=== PATIENT | female | born 2005 | race Caucasian/White ===

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

== ENCOUNTER 2025-04-05 08:30 | Outpatient (CLI) | payer OTHER, SELFPAY | END 2025-04-05 08:31 | disposition home or self-care (01) | LOC: AMB 04-06 23:04 | PROVIDERS: Visit Provider Student in an Organized Health Care Education/Training Program | DX: R41.82 Altered mental status, unspecified (principal) | CPT/HCPCS: A0425; A0427 ==

== ENCOUNTER 2025-04-05 08:56 | Emergency (ER) | payer OTHER, SELFPAY ==
--- OUTSIDE RECORDS SUMMARY | 2025-03-05 17:25 | XMS_ITS | Encounter Summary ---
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) Discharge Disposition: Home or Self Care Social History Tobacco Use Types Packs/Day Years Used Date Smoking Tobacco: Never Smokeless Tobacco: Never Tobacco Cessation:Counseling Given: Not Answered Alcohol Use Standard Drinks/Week Comments Never 0 (1 standard drink = 0.6 oz pur e alcohol) Comments No Sex and Gender Information Value Date Recorded Sex Assigned at Not on file Legal Sex Female 4:45 PM CDT Gender Identity Not on file Sexual Orientation Not on file documented as of this encounter Last Filed Vital Signs Vital Sign Reading Time Taken Comments Blood Pressure 131/86 03/06/2025 6:02 AM CDT Pulse 70 03/06/2025 6:02 AM CDT Temperature 36.3 C (97.4 F) 03/06/2025 6:02 AM CDT Respiratory Rate 18 03/06/2025 6:02 AM CDT Oxygen Saturation 99% 03/06/2025 6:02 AM CDT Inhaled Oxygen Concentration - - Weight 69.1 kg (152 lb 4.8 oz) 03/05/2025 5:22 P M CDT Height - - Body Mass Index - - documented in this encounter Functional Status * Calculated C-SSRS Risk Score (Lifetime/Recent) Answer Date of Assessment Author No Risk Indicated 03/05/2025 8:14 PM CDT Adriana Burris * Question Answer Date of Assessment Author Description of Most Severe Ideation (Past 1 Month) none reported 03/05/2025 8:14 PM CDT Adriana Ames Deterrents (Past 1 Month) 0 03/05/2025 8:14 PM MARGRETT Adriana Hood Reasons for Ideation (Past 1 Month) 0 03/05/2025 8:14 PM Adriana Ashley * Question Answer Date of Assessment Author Actual Attempt (Past 3 Months) No 03/05/2025 8:14 PM Adriana Ashley Total Number of Actual Attempts (Past 3 Months) 0 03/05/2025 8:14 PM Adriana Waters Has subject engaged in non-suicidal self-injurious behavior? (Past 3 Months) No 03/05/2025 8:14 PM CDT Adriana Clemens Interrupted Attempts (Past 3 Months) No 03/05/2025 8:14 PM Ash Ashley Total Number of Interrupted Attempts (Past 3 Months) 0 03/05/2025 8:14 PM MARGRETT Adriana Sadler Aborted or Self-Interrupted Attempt (Past 3 Months) No 03/05/2025 8:14 PM Adriana Green Total Number of Aborted or Self-Interrupted Attempts (Past 3 Months) 0 03/05/2025 8:14 PM Ash Ashley Preparatory Acts or Behavior (Past 3 Months) No 03/05/2025 8:14 PM Ash Ashley Total Number of Preparatory Acts (Past 3 Months) 0 03/05/2025 8:14 PM Adriana Ashley * Question Answer Date of Assessment Author Actual Attempt (Lifetime) No 03/05/2025 8:13 PM Adriana Ashley Has subject engaged in non-suicidal self-injurious behavior? (Lifetime) No 03/05/2025 8:13 PM Adriana Ashley Interrupted Attempts (Lifetime) No 03/05/2025 8:13 PM CDT Ash Hood Aborted or Self-Interrupted Attempt (Lifetime) No 03/05/2025 8:13 PM Ash Ashley Preparatory Acts or Behavior (Lifetime) No 03/05/2025 8:13 PM Ash Ashley * Question Answer Date of Assessment Author Reasons for Ideation (Lifetime) 0 03/05/2025 8:13 PM Ash Ashley documented as of this encounter Discharge Instructions * Attachments The following attachments cannot be sent through Care Everywhere. * Insomnia (Tunisian) documented in this encounter Medications at Time of Discharge melatonin 5 MG tablet Take 5 mg by mouth nightly as needed for sleep. OLANZapine (ZYPREXA) 10 MG tablet Take 1 tablet (10 mg) by mouth at bedtime. 30 tablet 03/08/2025 sodium chloride 0.65 % nasal spray Spring 1 spray into both nostrils daily as needed for congestion. childrens multivitamin (ANIMAL SHAPES) CHEW chewable tablet Take 1 tablet by mouth daily. fish oil-omega-3 fatty acids 500 MG capsule Take 1 capsule by mouth daily. norgestim-eth estrad triphasic (ORTHO TRI-CYCLEN) 0.18/0.215/0.25 MG-35 MCG tablet Take 1 tablet by mouth daily. documented as of this encounter Consult Notes * Tosin Reddy MD - 03/05/2025 9:47 PM CDTAssociated Order(s): PSYCHIATRY IP CONSULT Consult completed, see that note * Adriana Hood M - 03/05/2025 8:34 PM CDTAssociated Order(s): DIAGNOSTIC EVALUATION CENTER (DEC) ASSESSMENT ORDER Diagnostic Evaluation Consultation Crisis Assessment Patient Name: Amanda Monroy Age: [age] year old Legal Sex: female Gender Identity: female Pronouns: Race: White Ethnicity: Not or Language: Tunisian Patient was assessed: In person Crisis Assessment Start Date: 03/05/25 Crisis Assessment Start Time: 557 Crisis Assessment Stop Time: 658 Patient location: [facility] Emergency Department ED09 Referral Data and Chief Complaint Amanda Monroy presents to the ED with family/friends. Patient is presenting to the ED for the following concerns: Paranoia, Worsening psychosocial stress. Factors that make the mental health crisis life threatening or complex are: Pt presented to the ED due to paranoia and insomnia. Pt previously presented at the [facility] on 03/01 due to paranoia and extreme exhaustion, and she was placed on observation overnight. The following morning, PT felt better after sleeping and was discharged.However, the paranoia returned by the afternoon.Since discharge, Pt has been able to sleep with medication but reports still being exhausted. Pt took Zyprexa on and melatonin for two days. Pt also reports a poor appetite. Pt had paranoid thoughts but was also engaging in reality testingand questioned if what she was thinking was just paranoia. An example of paranoia was that she thought someone may have put something in her food or switched her medications. Pt also expressed fear that the nurses would hurt her and was suspicious that there were so many nurses at the hospital. Pt a lso said she has been receiving weird messages on her phone from friends and from [place]. Pt alsodescribed feeing weak. Pt said she wanted to have her urine and blood tested and to find out what is going on with her. Pt was accompanied to the hospital by a friend that she referred to as her Guamanian mom. Her friend reported that a student recently at [employer], and she had to assure Pt that she was not with him, did not know him, and was not responsible for his . Pt described trauma and that she had to escape the [place] due to the war, but her brother and father are still there. Her brother was diagnosed with schizophrenia. When asked about visual hallucinations, Pt describedbeing very observant and that she may just see things that other people don't see. Pt then described seeing a car in a tree today. Pt did not describe auditory hallucinations. Pt denied SI/SIB/HI andwas oriented x4.. Informed Consent and Assessment Methods Explained the crisis assessment process, including applicable information disclosures and limits toconfidentiality, assessed understanding of the process, and obtained consent to proceed with the assessment. Assessment methods included conducting a formal interview with patient, review of medical records, collaboration with medical staff, and obtaining relevant collateral information from familyand community providers when available. : done History of the Crisis Pt previously presented at the [facility] on 03/01 due to paranoia and extreme exhaustion because she had not slept for several days. Pt described that she was also hyper-verbal for several hours before going to the hospital, and she was placed on observation overnight. Pt described that shehad trouble sleeping because she could not stop thinking.The following morning, PT felt better after sleeping and was discharged. However, the paranoia returned by the afternoon. Pt has seen her primary care provider, who recommended that she come to [facility] to be assessed, and she has an appointment with a psychologist tomorrow. Prior to this incident, Pt had not experienced paranoia. Brief Psychosocial History Family: Single, Children Support System: Parent(s), Friend Employment Status: student Source of Income: unable to assess Financial Environmental Concerns: none Current Hobbies: exercise/fitness, family functions, reading Barriers in Personal Life: (none reported) Significant Clinical History Current Anxiety Symptoms: racing thoughts, excessive worry, anxious Current Depression/Trauma: difficulty concentrating, crying or feels like crying, impaired decisionmaking, sadness Current Somatic Symptoms: anxious, excessive worry Current Psychosis/Thought Disturbance: forgetful, visual hallucinations Current Eating Symptoms: loss of appetite Chemical Use History: Alcohol: None Benzodiazepines: None Opiates: None Cocaine: None Marijuana: None Other Use: None Withdrawal Symptoms: (none reported) Addictions: (none reported) Past diagnosis: Family history: Anxiety Disorder Past treatment: Individual therapy, Primary Care Details of most recent treatment: Pt was placed on observation overnight at [facility] on 03/01/25. Pt was given a diagnosis of Anxiety. Pt saw a therapist on 03/02/25 and had a telehealth appointment with her primary care physician. Other relevant history: Have there been any medication changes in the past two weeks: no Is the patient compliant with medications: yes Collateral Information Is there collateral information: Yes Collateral information name, relationship, phone number: Family friend, Lynda Gill - [phone], who Pt referred to as her Guamanian mom What happened today: Pt has had paranoia since she left the hospital. Lynda said Pt has clarityin the morning and then the paranoia worsens as the day progresses. Pt has also been confused and had difficulty making decisions. What is different about patient's functioning: Pt reported that the paranoia has been going on since Thursday. What do you think the patient needs: Has patient made comments about wanting to kill themselves/others: no If d/c is recommended, can they take part in safety/aftercare planning: yes Additional collateral information: Risk Assessment [place] Suicide Severity Rating Scale Full Clinical Version: Suicidal Ideation Q1 Wish to be (Lifetime): No Q2 Non-Specific Active Suicidal Thoughts (Lifetime): No Q6 Suicide Behavior (Lifetime): no Intensity of Ideation (Lifetime) Most Severe Ideation Rating (Lifetime): (none reported) Reasons for Ideation (Lifetime): Does not apply Suicidal Behavior (Lifetime) Actual Attempt (Lifetime): No Has subject engaged in non-suicidal self-injurious behavior? (Lifetime): No Interrupted Attempts (Lifetime): No Aborted or Self-Interrupted Attempt (Lifetime): No Preparatory Acts or Behavior (Lifetime): No [place] Suicide Severity Rating Scale Recent: Suicidal Ideation (Recent) Q1 Wished to be (Past Month): no Q2 Suicidal Thoughts (Past Month): no Level of Risk per Screen: no risks indicated Intensity of Ideation (Recent) Most Severe Ideation Rating (Past 1 Month): (none reported) Description of Most Severe Ideation (Past 1 Month): none reported Deterrents (Past 1 Month): Does not apply Reasons for Ideation (Past 1 Month): Does not apply Suicidal Behavior (Recent) Actual Attempt (Past 3 Months): No Total Number of Actual Attempts (Past 3 Months): 0 Has subject engaged in non-suicidal self-injurious behavior? (Past 3 Months): No Interrupted Attempts (Past 3 Months): No Total Number of Interrupted Attempts (Past 3 Months): 0 Aborted or Self-Interrupted Attempt (Past 3 Months): No Total Number of Aborted or Self-Interrupted Attempts (Past 3 Months): 0 Preparatory Acts or Behavior (Past 3 Months): No Total Number of Preparatory Acts (Past 3 Months): 0 Environmental or Psychosocial Events: geographic isolation from supports, helplessness/hopelessness, other life stressors Protective Factors: Protective Factors: strong felipe to family unit, community support, or employment, lives in a responsibly safe and stable environment, good treatment engagement, sense of importance of health and wellness, supportive ongoing medical and mental health care relationships, help seeking, constructive use of leisure time, enjoyable activities, resilience Does the patient have thoughts of harming others? Feels Like Hurting Others: no Previous Attempt to Hurt Others: no Current presentation: (none reported) Is the patient engaging in sexually inappropriate behavior?: no Does Patient have a known history of aggressive behavior: No Has aggression occurred as a result of MH concerns/diagnosis: None reported Does patient have history of aggression in hospital: No Is the patient engaging in sexually inappropriate behavior? no Mental Status Exam Affect: Appropriate Appearance: Appropriate Attention Span/Concentration: Attentive Eye Contact: Engaged Fund of Knowledge: Appropriate Language /Speech Content: Fluent Language /Speech Volume: Normal Language /Speech Rate/Productions: Articulate Recent Memory: Intact Remote Memory: Intact Mood: Anxious, Normal Orientation to Person: Yes Orientation to Place: Yes Orientation to Time of Day: Yes Orientation to Date: Yes Situation (Do they understand why they are here?): Yes Psychomotor Behavior: Normal Thought Content: Paranoia Thought Form: Goal Directed, Paranoia Medication Psychotropic medications: Medication Orders - Psychiatric (From admission, onward) Start Dose/Rate Route Frequency Ordered Stop 03/05/251999 OLANZapine (zyPREXA) tablet 10 mg 10 mg Oral 2 TIMES DAILY 03/05/25193003/05/251930 OLANZapine zydis (zyPREXA) ODT tab 10 mg 10 mg Oral 3 TIMES DAILY PRN 03/05/25193003/05/251929 hydrOXYzine HCl (ATARAX) tablet 25 mg 25 mg Oral EVERY 4 HOURS PRN 09/14/25 1931 Current Care Team Patient Care Team: Crys Quispe as PCP - General (Family Medicine) Diagnosis Patient Active Problem List Diagnosis Code Insomnia due to other mental disorder F51.05, F99 Anxiety F41.9 Primary Problem This Admission Active Hospital Problems Insomnia due to other mental disorder *Anxiety Clinical Summary and Substantiation of Recommendations Clinical Substantiation: In consultation with Dr. Knight, Pt is appropriate for psychiatric observation. Pt has been experiencing increasing paranoia and insomnia, which began approximately one week ago. Pt was placed on observation at another hospital on 03/01/25, but she was discharged after sleepingovernight. It was reported that the paranoia returned the following afternoon. Pt will benefit fromobservation and a psych consult for symptom stabilization and treatment. However, Pt is not holdable. If Pt requests to be discharged, she is safe to be discharged and to follow up with community providers for treatment. Goals for crisis stabilization: symptom stabilization Next steps for Care Team: psych consult Treatment Objectives Addressed: rapport building, orienting the patient to therapy, identifying andpracticing coping strategies, processing feelings, safety planning, assessing safety, identifying additional supports, building skills Therapeutic Interventions: Engaged in safety planning, Identified and practiced coping skills., Explored strategies for self-soothing. Has a specific means been identified for suicidal/homicide actions: No If yes, describe: Explain action steps toward mitigation: Document completion of mitigation actions: The follow up action still needed prior to discharge: Patient coping skills attempted to reduce the crisis: Pt said she can talk to someone, listen to music, or listen to ocean waves Disposition Recommended referrals: Individual Therapy, Medication Management Reviewed case and recommendations with attending provider. Attending Name: Dr. Knight Attending concurs with disposition: yes Patient and/or validated legal guardian concurs with disposition: yes Final disposition: observation Legal status: Voluntary/Patient has signed consent for treatment Reviewed court records: yes Assessment Details Total duration spent with the patient: 61 min CPT code(s) utilized: 13185 - Psychotherapy for Crisis - 60 (30-74*) min Adriana Hood Psychotherapist [facility] - Triage & Transition Services Callback: [phone] * Tosin Reddy MD - 03/05/2025 7:35 PM CDTAssociated Order(s): PEDIATRIC PSYCHIATRY IP CONSULT [facility] ED Department of Psychiatry Initial Psychiatric Observation Note Observation Initiation Date: Mar 05, 2025 Amanda Monroy Age: [age] year old Date of : 2005 History Chief Complaint Patient presents with Insomnia HPI Amanda Monroy is a 19 year old female with a history of PTSD, paranoia who came in today for insomnia and paranoia. She was seen with a friend present with her consent per her preference. She wasseen for similar concerns in an ED in [facility] 03/01. She was able to sleep there, felt better so was discharged. She presented as tangential and disorganized there. They had given her olanzapine, she had some trouble getting that so ended up taking melatonin instead and feels that helped as well. She was seen 03/03 at an [facility] outpatient clinic to follow up from the ED for the same concerns. Sheexpressed concerns about paranoia. She was noted to be organized there. She was referred to a firstepisode psychosis program but has not followed up with that yet. She has an appointment tomorrow for outpatient follow up through [facility]. Patient reports taking citalopram for about 6 months in the past for anxiety. She felt better so stopped the medication. No other medications. No prior episodes of psychosis. No history of manic episodes. Denies substance use. UDS neg. Labs that are back so farare wnl, she has been medically cleared. She is concerned about her physical health, nothing specific. She has a history of trauma. She is concerned because her brother has schizophrenia so she fears she has that. She has concerns about school, having trouble there. She is concerned about paranoia, says she is aware that the things she isconcerned about are not based in reality. Collateral info describes significant paranoia and delusions. She denies SI/HI. She prefers outpatient treatment at this time (PCP had encouraged inpatient today). She would prefer to see a therapist before taking medication but is open to considering medication tonight and revisiting tomorrow. Her friend is acting as a parental figure. She reports that patient is typically ok in the morning then becomes increasingly paranoid as the day goes on. Patient notes this as well. Patient notes that her memory and concentration also get worse as the day goes on. Patient denies depressive symptoms, does feel anxious. Denies AH/SI/HI. Says she sees things sometimes, like a car in a tree. Reports f eeling paranoid, has insight re: that. She is organized, goal directed tonight. Hygiene and eye contact are wnl. Past Medical History History reviewed. No pertinent past medical history. History reviewed. No pertinent surgical history. childrens multivitamin (ANIMAL SHAPES) CHEW chewable tablet fish oil-omega-3 fatty acids 500 MG capsule melatonin 5 MG tablet norgestim-eth estrad triphasic (ORTHO TRI-CYCLEN) 0.18/0.215/0.25 MG-35 MCG tablet sodium chloride 0.65 % nasal spray No Known Allergies Family History History reviewed. No pertinent family history. Social History Social History Tobacco Use Smoking status: Never Smokeless tobacco: Never Substance Use Topics Alcohol use: Never Drug use: Never Review of Systems A medically appropriate review of systems was performed with pertinent positives and negatives noted in the HPI, and all other systems negative. Physical Examination BP: (!) 144/91 Pulse: 82 Temp: 98 ??F (36.7 ??C) Resp: 16 Weight: 69.1 kg (152 lb 4.8 oz) SpO2: 97 % Physical Exam General: Appears stated age. Neuro: Alert and fully oriented. Extremities appear to demonstrate normal strength on visual inspection. Integumentary/Skin: no rash visualized, normal color Psychiatric Examination Appearance: awake, alert, adequately groomed, and casually dressed Attitude: cooperative Eye Contact: good Mood: paranoid Affect: guarded Speech: clear, coherent Psychomotor Behavior: no evidence of tardive dyskinesia, dystonia, or tics Thought Process: logical, linear, and goal oriented Associations: no loose associations Thought Content: no evidence of suicidal ideation or homicidal ideation, no auditory hallucinationspresent, and reports VH at times, does not respond to internal stimuli Insight: good Judgement: intact Oriented to: time, person, and place Attention Span and Concentration: intact Recent and Remote Memory: intact Language: able to name/identify objects without impairment Fund of Knowledge: intact with awareness of current and past events ED Course Labs Ordered and Resulted from Time of ED Arrival to Time of ED Departure URINE DRUG SCREEN PANEL - Normal Result Value Amphetamines Urine Screen Negative Barbituates Urine Screen Negative Benzodiazepine Urine Screen Negative Cannabinoids Urine Screen Negative Cocaine Urine Screen Negative Fentanyl Qual Urine Screen Negative Opiates Urine Screen Negative PCP Urine Screen Negative COMPREHENSIVE METABOLIC PANEL (LIMITED OCCURRENCES) AMMONIA MAGNESIUM (LIMITED OCCURRENCES) TSH WITH FREE T4 REFLEX HCG QUANTITATIVE Assessments & Plan (with Medical Decision Making) Patient presenting with insomnia and paranoia. Nursing notes reviewed noting no acute issues. She describes some paranoia and delusions as does her friend. She does not show other signs of psychosis tonight in terms of thought process, does not respond to internal stimuli. She is a little guarded. She reports VH but denies AH which is also less typical of psychotic illness. She was described as disorganized and tangential on 03/01 which along with delusions and paranoia is more concerning for psychosis. Collateral information suggests significant paranoia and delusions at times. She reports trouble sleeping but feels exhausted, no evidence of acute leandra. She denies feeling depressed and no collateral information to suggest that. Symptoms are better in the morning and get worse throughout the day which is also less consistent with psychosis. She does have a significant trauma history and has been treated for anxiety in the past. The paranoia is not clearly linked to trauma but patient is a bit guarded so that is possible. Family history of psychotic illness. Substance use does not appear to be contributing. Overall the most likely explanation based on available info is emerging psychotic illness but could also be trauma related symptoms exacerbated by anxiety and insomnia. Patient does want help but is currently ambivalent about what type of help she wants. Patient is interested in outpatient care at this time. She is not holdable currently in my opinion. I have reviewed the assessment completed by the [facility]. Spoke with ED MD and LMHP about patient's care. During the observation period, the patient did not require medications for agitation, and did not require restraints/seclusion for patient and/or provider safety. The patient was found to have a psychiatric condition that would benefit from an observation stay in the emergency department for further psychiatric stabilization and/or coordination of a safe disposition. The observation plan includes serial assessments of psychiatric condition, potential administration of medications if indicated, further disposition pending the patient's psychiatric course during the monitoring period. Preliminary diagnosis: ICD-10-CM 1. Psychosis nos 2. Insomnia Treatment Plan: -Programmatic care could be helpful if she will engage with that. Not sure where things stand the the [facility] referral to their first episode psychosis program, that would be beneficial. It would be helpful to assess her symptoms over time to guide accurate diagnosis treatment. She is not currently holdable and given her ambivalence and paranoia would try to avoid involuntary treatment as it coulddamage therapeutic engagement assisted. - She has an outpatient appointment for therapy which she is interested in pursuing. She feels thiswill be most helpful for her trauma which is likely the case. -She is ambivalent about medication.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
--- OUTSIDE RECORDS SUMMARY | 2025-03-06 20:33 | XMS_ITS | Encounter Summary ---
Author Organization [facility] Address [address] [place] [id number] Care Team Providers Care Gear Machinist Name Role Phone Crys Quispe Primary Care Provider [phone] Reason for Visit * Reason Comments Paranoid Anxiety * Auth/Cert (Routine) Specialty Diagnoses / Procedures Referred By Controosevelt t Referred To Contact EMERGENCY MEDICINE [facility] Emergency Dept [address] [place] [address] Phone: tel: fax: Referral ID Status Reason Start Date Expiration Date Visits Re quested Visits Authorized [id number] 1 1 Encounter Details Date Type Department Care Team (Late st Contact Info) Description 03/06/2025 8:33 PM CDT - 03/08/2025 6:00 PM CDT Hospital Encounter [facility] Emergency [facility] [address] [place] [address] Trigger, Tramaine Nova MD [facility] [address] [place] [address] [place] [id number] Aquilino Al MD [facility] [address] [place] [address] Fransisco Ríos MD [address] [place] [address] Insomnia, unspecified type (Primary Dx); Paranoia (H); Anxiety Discharge Disposition: Home or Self Care Social History Tobacco Use Types Packs/Day Years Used Date Smoking Tobacco: Never Smokeless Tobacco: Never Alcohol Use Standard Drinks/Week Comments Never 0 [...] Sign Reading Time Taken Comments Blood Pressure 120/81 03/08/2025 10:00 AM CDT Pulse 101 03/08/2025 10:00 AM CDT Temperature 36.6 C (97.9 F) 03/08/2025 10:00 AM CDT Respiratory Rate 16 03/08/2025 10:00 AM CDT Oxygen Saturation 97% 03/08/2025 10:00 AM CDT Inhaled Oxygen Concentration - - Weight 68.5 kg (151 lb) 03/06/2025 8:35 PM CDT Height 165.1 cm (5' 5) 03/07/2025 1:14 AM CDT Body Mass Index 25.13 03/06/2025 8:35 PM CDT documented in this encounter Functional Status * Calculated C-SSRS Risk Score (Lifetime/Recent) Answer Date of Assessment Author No Risk Indicated 03/07/2025 5:31 AM CDT Ginger Díaz LPCC, MARIA C * Question Answer Date of Assessment Author Deterrents (Past 1 Month) 0 03/07/2025 5:31 AM CDT Ginger Díaz LPCC, LADC Reasons for Ideation (Past 1 Month) 0 03/07/2025 5:31 AM CDT Ginger Díaz LPCC, MARIA C * Question Answer Date of Assessment Author Actual Attempt (Past 3 Months) No 03/07/2025 5:31 AM CDT Ginger Díaz LPCC, MARIA C Has subject engaged in non-suicidal self-injurious behavior? (Past 3 Months) No 03/07/2025 5:31 AM CDT Sisi Díaz sa, LPCC, LADC Interrupted Attempts (Past 3 Months) No 03/07/2025 5:31 AM CDT Lippold, Ginger Dasia, LPCC, LADC Aborted or Self-Interrupted Attempt (Past 3 Months) No 03/07/2025 5:31 AM CDT Lippold, Ginger Dasia, LPCC, LADC Preparatory Acts or Behavior (Past 3 Months) No 03/07/2025 5:31 AM CDT Lippold, Ginger Dasia, LPCC, LADC * Question Answer Date of Assessment Author Actual Attempt (Lifetime) No 03/07/2025 1:43 AM CDT Lippold, Ginger Dasia, LPCC, LADC Has subject engaged in non-suicidal self-injurious behavior? (Lifetime) No 03/07/2025 1:43 AM CDT Lippold, Ginger Dasia , LPCC, LADC Interrupted Attempts (Lifetime) No 03/07/2025 1:43 AM CDT Lippold, Ginger Dasia, LPCC, LADC Aborted or Self-Interrupted Attempt (Lifetime) No 03/07/2025 1:43 AM CDT Lippold, Ginger Dasia, LPCC, LADC Preparatory Acts or Behavior (Lifetime) No 03/07/2025 1:43 AM CDT Lippold, Ginger Dasia, LPCC, LADC * Question Answer Date of Assessment Author Deterrents (Lifetime) 0 03/07/2025 1:43 AM CDT Lippold, Ginger Dasia, LPCC, LADC Reasons for Ideation (Lifetime) 0 03/07/2025 1:43 AM CDT Lippold, Ginger Dasia, LPCC, LADC documented as of this encounter Discharge Instructions * Discharge Instructions* Fransisco Ríos MD - 03/08/2025 11:17 AM CDT Aftercare Plan If I am feeling unsafe or I am in a crisis, I will: Contact my established care providers Call the National Suicide Prevention Lifeline: 988 Go to the nearest emergency room Call 911 Trauma therapy modalities EMDR - Eye Movement Desensitization and Reprocessing A psychotherapy treatment that is designed to alleviate the distress associated with traumatic memories. https://www.emdr.com/utuv-pr-jrre/ ART - Accelerated Resolution Therapy a unique approach to psychotherapy. ART is unique because the ART Therapist guides the client to replace the negative images in the mind that cause the symptoms of Post-Traumatic Stress with positiveimages of the client???s choosing. And this is done quickly, most often within one session! Once the negative images have been replaced by positive ones, the triggers will be gone. Nightmares and repeated intrusive thoughts will stop. https://Influitive/therapist-directory/ Brainspotting a powerful, focused treatment method that works by identifying, processing and releasing core neurophysiological sources of emotional/body pain, trauma, dissociation and a variety of other challenging symptoms. Brainspotting is a simultaneous form of diagnosis and treatment, enhanced with Biolateral sound, which is deep, direct, and powerful yet focused and containing. https://Genomera/directory/ Accelerated Resolution Therapy (ART) referrals Search this directory of trained ART therapists in your area and contact them directly. https://Influitive/therapist-directory/ Ask for any available ART therapist Agency: [employer] Address: [facility] Website: https://Authy/art Agency: [employer] Address: [place], [place] Website: www.YesPlz! Agency: [facility] Address: [place], [place] Website: https://Fundation/ Name: Ashly Allison [facility] Website: [email or web address].[employer].SimpleLegal She does not accept insurance so is only private pay. Visit her website to see full list of services, rates, and contact form. [place] [facility] Our staff is dedicated to the pursuit of equity for and inclusion of all [facility] by ensuring equal access to educational and campus opportunities. [email or web address]/dac/ Additional Information Today you were seen by a licensed mental health professional through Triage and Transition services, [facility]) for a crisis assessment in the Emergency Department at [facility]. It is recommended that you follow up with your established providers (psychiatrist, mental health therapist, and/or primary care doctor - as relevant) as soon as possible. Coordinators from [facility] will be calling you in the next 24-48 hours to ensure that you have the resources you need. You can also contact [facility] coordinators directly at [phone]. You may have been scheduled for or offered an appointment with a mental health provider. [facility] maintains an extensive network of licensed [facility] providers to connect patients with the services they need. We do not charge providers a fee to participate in our referral network. We match patients with providers based on a patient's specific needs, insurance coverage, and location. Our first effort will be to refer you to a provider within your care system, and will utilize providers outside your care system as needed. documented in this encounter Medications at Time of Discharge melatonin 5 MG tablet Take 5 mg by mouth nightly as needed for sleep. OLANZapine (ZYPREXA) 10 MG tablet Take 1 tablet (10 mg) by mouth at bedtime. 30 tablet 03/08/2025 sodium chloride 0.65 % nasal spray [place] 1 spray into both nostrils daily as needed for congestion. childrens multivitamin (ANIMAL SHAPES) CHEW chewable tablet Take 1 tablet by mouth daily. fish oil-omega-3 fatty acids 500 MG capsule Take 1 capsule by mouth daily. norgestim-eth estrad triphasic (ORTHO TRI-CYCLEN) 0.18/0.215/0.25 MG-35 MCG tablet Take 1 tablet by mouth daily. documented as of this encounter Progress Notes * Deborah Munoz RN - 03/08/2025 5:05 PM CDT Discharge instructions reviewed with patient including follow-up care plan. Educated on medication regimen and advised not to stop prescribed medication without consulting their physician. Reviewed safety plan and outpatient resources. Pt denies active SI. Pt has contracted for safety and completedsafety plan with [facility]. All belongings which were brought into the hospital have been returned to patient. Escorted off the unit at door 6 accompanied by [facility] staff. Discharged to home in stable condition via car. * Omi Buckley, FINAL ARMATURE TESTER - 03/08/2025 1:14 PM CDT Triage and Transition Services Extended Care Reassessment Patient: Amanda goes by Amanda, uses she/her pronouns Date of Service: March 08, 2025 Site of Service: [facility] Emergency Dept [id number] Patient was seen yes Distant Location On-site Patient was assessed: In person Reason for Reassessment: (discharge) History of Patient's Original Emergency Room Encounter: no dx hx personally; family history of schizophrenia; presenting crisis was lack of sleep, anxiousness, disorganization Current Patient Presentation: calm, cooperative, pleasant, future oriented, and engaged Presentation Summary: Patient was socializing with another peer while watching TV in their recliners when short story writer approached with introduction and invite to meet. She accepted both. Patient reports feeling much better after 12 hours of sleep and is hoping to speak with provider about medications to go home with. She is very interested in discharging home today to have the comforts of home - cat, dog, and boyfriend. She is motivated to engage in outpatient therapy and psychiatry so we will assist in getting those appointments scheduled. Patient also asked about trauma-specific therapy so short story writer provided education about EMDR, ART, and Brainspotting. She will look into each of these and schedule with one that she feels would be a good fit. Patient expressed worry about college class schedule and responsibilities so sought guidance on how to manage this. Motorboat Mechanic Inboard/Outboard suggested working with campus disability office on accommodations in this regard. Patient denies SI, HI, AH, VH, paranoia and delusions. Changes Observed Since Initial Assessment: decrease in presenting symptoms, patient/family request Therapeutic Interventions Provided: Engaged in cognitive restructuring/ reframing, looked at commoncognitive distortions and challenged negative thoughts., Engaged in guided discovery, explored patient's perspectives and helped expand them through socratic dialogue., Engaged in activity schedulingand behavioral activation, looking at and reviewing the prior week's goals, problem solving any barriers and acknowledging successes, as well as setting new goals., Coached on coping techniques/relaxation skills to help improve distress tolerance and managing intense emotions., Taught the link between thoughts, feelings, and behaviors., Identified and practiced coping skills. Current Symptoms: anxious (denies) anxious (denies) (no concerns noted) Mental Status Exam Affect: Appropriate Appearance: Appropriate Attention Span/Concentration: Attentive Eye Contact: Engaged Fund of Knowledge: Appropriate Language /Speech Content: Fluent Language /Speech Volume: Normal Language /Speech Rate/Productions: Normal Recent Memory: Intact Remote Memory: Intact Mood: Normal Orientation to Person: Yes Orientation to Place: Yes Orientation to Time of Day: Yes Orientation to Date: Yes Situation (Do they understand why they are here?): Yes Psychomotor Behavior: Normal Thought Content: Clear Thought Form: Intact Treatment Objective(s) Addressed: rapport building, orienting the patient to therapy, processing feelings, identifying an appropriate aftercare plan, assessing safety, identifying additional supports, exploring obstacles to safety in the community Patient Response to Interventions: eager to participate, acceptance expressed, verbalizes understanding Progress Towards Goals: Patient Reports Symptoms Are: improving Patient Progress Toward Goals: is making progress Comment: slept well, reduced anxiety, future oriented Next Step to Work Toward Discharge: follow up on referrals Symptom Stabilization Comment: obtain insurance coverage, schedule with outpatient therapy and medication management Case Management: Case Management Included: collaborating with patient's support system Details on Collaborating with Patient's Support System: mother Metcalf, Details on skills work: mindfulness, breath work, positive coping skills, DBT skills Summary of Interaction: updated mother on plan of care to discharge later today after provider finalizes medications. Discussed need to clarify insurance coverage; patient does have student insurancecoverage. They will work with Disability Office on campus. Mother is currently down in [place] taking care of some other responsibilities until evening time. Mother is onboard with discharge. C-SSRS Since Last Contact: 1. Wish to be (Since Last Contact): No 2. Non-Specific Active Suicidal Thoughts (Since Last Contact): No Actual Attempt (Since Last Contact): No Has subject engaged in non-suicidal self-injurious behavior? (Since Last Contact): No Interrupted Attempts (Since Last Contact): No Aborted or Self-Interrupted Attempt (Since Last Contact): No Preparatory Acts or Behavior (Since Last Contact): No Suicide (Since Last Contact): No Calculated C-SSRS Risk Score (Since Last Contact): No Risk Indicated Plan: Final Disposition / Recommended Care Path: discharge Plan for Care reviewed with assigned Medical Provider: yes Plan for Care Team Review: provider, RN Comments: Andish Patient and/or validated legal guardian concurs: yes Clinical Substantiation: It is recommendation of short story writer that patient discharge back to the community after her anxiousness and disorganization have been addressed through sleep and medication management. She is future oriented, engaged, and pleasant. Patient notes her sleep deprivation likely caused the anxiety and disorganization. She is motivated to address her trauma history and is receptive to education about trauma therapy modalities. Once she researches each of these modalities, she will schedule with a trained therapist in that modality. Patient is going to coordinate with her college staff and the campus disability staff on accommodations to promote better mental health too. Patient denies SI, HI, AH, VH, paranoia and delusions. Legal Status: Legal Status: Voluntary/Patient has signed consent for treatment Session Status: Time session started: 1050 Time session ended: 1110 Session Duration (minutes): 20 minutes Session Number: 3 Anticipated number of sessions or this episode of care: 3 Date of most recent diagnostic assessment: (unknown) Session Start Time: 1050 Session Stop Time: 1110 Diagnosis: Patient Active Problem List Diagnosis Code Insomnia due to other mental disorder F51.05, F99 Anxiety F41.9 Insomnia, unspecified type G47.00 Primary Problem This Admission: Active Hospital Problems Insomnia, unspecified type *Anxiety DAVID Akhtar, DIANE Licensed Mental Health Professional (LMHP) [place], * Florin Henderson RN - 03/08/2025 6:46 AM CDT Patient is in sensroy room A resting on the mat with eyes closed. She slept all night with no interruption. She occasionally repositioned herself and respiration was unlabored and WNL. * Leslie Cid RN - 03/07/2025 8:10 PM CDT Pt signed CARLOS for mother/sponsor, Lynda, and requested she be given an update. Lynda reported great concern for Pt and the possibility of Pt getting discharged. 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 Education provided on the criteria for a hold. Lynda reported that since Thursday, Pt has been in a manic state multiple times a day. She reports that she has been having to stay with the Pt 90% of the time. Lynda reported that Pt willwake up cognizant and as the day progresses the pt will lose touch with reality, forgets to eat, isnot cooperative, sees things, and does not have an ability to reason, will become paranoid and think people are out to get her. She states this has been a repetitive pattern. 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 Lynda reports that Pt's roommate has told her that the Pt is up in the middle of night and will sometimes shower at 3AM and not remember the next day. Lynda also wanted to share that Pt's brother is diagnosed with schizophrenia. She is worried that Ptwill discharge, try to go back to nursing school and her full schedule and have a manic episode. She is requesting a formal diagnosis as she thinks there is and underlying mental health issue other than insomnia. Mother educated on OP neuropsych testing.. * Juan C Lawrence, [facility] - 03/07/2025 1:54 PM CDT Triage and Transition Services Extended Care Reassessment Patient: Amanda goes by Amanda, uses she/her pronouns Date of Service: March 07, 2025 Site of Service: [facility] Emergency Dept [id number] Patient was seen yes Distant Location On-site Patient was assessed: In person Reason for Reassessment: History of Patient's Original Emergency Room Encounter: Pt states she does not have a history of mental health diagnosis. Pt denies history of IPMH. She is not currently on medications for mental health. Pt states that she is staying with her host 'mother' whom she refers to as mom. Pt did not describe auditory hallucinations. Pt denied SI/SIB/HI and was oriented x4. Pt was scheduled to see a psychologist. She denies substance use. Current Patient Presentation: Pt presents for reassessment as calm and cooperative Presentation Summary: Pt presents for reassessment as calm and cooperative. Pt reports feeling a little calmer this afternoon. Pt denies SI, SIB, HI, AVH and other psychotic sx. Pt reports getting some rest which has been therapeutic but reports continued perseveration about recent stressors and concerns about mental health sx severity. Pt shared insight into events that occurred over last week with the persistent sleeplessness resulting in increased racing thoughts, excessive worries, and some expansive thinking. Pt reports she was so exhausted that nothing made sense. Pt reports instanceswhere she wondered why things were happen stating it felt like the day was planned for me citing interactions with peers and teachers that left her feeling unsettled and worried. Pt reports she attempted to use reality testing with trusted friends but anxiousness persisted. After visiting ED and getting Zyprexa for medication management pt reported stabilizing somewhat over the weekend. However, going back to class yesterday reignited sx severity resulted in another surge of anxiety/perseverat ion. Pt reports her friends said she was paranoid but could not cite any specific paranoid thoughtsor delusions. Pt engaged in therapeutic interventions to process emotions, complete coping skills inventory, and practice mindfulness. Pt engaged in guided Leaves on a Stream meditation to promote mindfulness to address anxiousness and a self compassion meditation to promote all and patience inrecovery. Pt provided journal, weighted blanket and essential oils to support coping strategies. Ptis recommended for continued observation at [facility] unit to support further stabilization of sx. Pt and provider are agreeable to observation care path. LMHP will continue to reassess as needed to determine appropriate care path. When pt is appropriate for discharge aftercare plan should focus on coordination of OP therapy and OP psychiatry referrals. Changes Observed Since Initial Assessment: decrease in presenting symptoms Therapeutic Interventions Provided: Engaged in cognitive restructuring/ reframing, looked at commoncognitive distortions and challenged negative thoughts., Engaged in guided discovery, explored patient's perspectives and helped expand them through socratic dialogue., Coached on coping techniques/re laxation skills to help improve distress tolerance and managing intense emotions., Identified and practiced coping skills. Current Symptoms: anxious, excessive worry, racing thoughts excessive guilt, difficulty concentrating anxious, excessive worry, racing thoughts, wandering Mental Status Exam Affect: Appropriate Appearance: Appropriate Attention Span/Concentration: Attentive Eye Contact: Engaged Fund of Knowledge: Appropriate Language /Speech Content: Fluent Language /Speech Volume: Normal Language /Speech Rate/Productions: Normal Recent Memory: Intact Remote Memory: Intact Mood: Anxious Orientation to Person: Yes Orientation to Place: Yes Orientation to Time of Day: Yes Orientation to Date: Yes Situation (Do they understand why they are here?): Yes Psychomotor Behavior: Normal Thought Content: Clear Thought Form: Obsessive/Perseverative Treatment Objective(s) Addressed: processing feelings, assessing safety, identifying treatment goals, identifying additional supports, identifying and practicing coping strategies, building skills Patient Response to Interventions: eager to participate Progress Towards Goals: Patient Reports Symptoms Are: improving Patient Progress Toward Goals: is making progress Case Management: Case Management Included: skills work Details on skills work: mindfulness, breath work, positive coping skills, DBT skills Summary of Interaction: Pt engaged in skills work focused on self-soothing and self-regulation C-SSRS Since Last Contact: 1. Wish to be (Since Last Contact): No 2. Non-Specific Active Suicidal Thoughts (Since Last Contact): No Actual Attempt (Since Last Contact): No Has subject engaged in non-suicidal self-injurious behavior? (Since Last Contact): No Interrupted Attempts (Since Last Contact): No Aborted or Self-Interrupted Attempt (Since Last Contact): No Preparatory Acts or Behavior (Since Last Contact): No Suicide (Since Last Contact): No Calculated C-SSRS Risk Score (Since Last Contact): No Risk Indicated Plan: Final Disposition / Recommended Care Path: observation Plan for Care reviewed with assigned Medical Provider: yes Plan for Care Team Review: provider Comments: Fransisco Ríos MD Patient and/or validated legal guardian concurs: yes Clinical Substantiation: A lower level of care has been unsuccessful in treating and stabilizing pt???s mental health symptoms. Pt is recommended for continued observation at [facility] for monitoring, treatment and therapeutic intervention of mental health symptoms. Observation at [facility] could help mitigate the need for a more restrictive level of care in an inpatient setting. Pt and provider are agr eeable to continued observation. LMHP will continue to reassess as needed to determine appropriate care path. When pt is appropriate for discharge aftercare plan should focus on coordination of OP therapy and OP psychiatry referrals. Legal Status: Legal Status: Voluntary/Patient has signed consent for treatment Session Status: Time session started: 1353 Time session ended: 1435 Session Duration (minutes): 42 minutes Session Number: 2 Anticipated number of sessions or this episode of care: 3 Date of most recent diagnostic assessment: (unknown) Session Start Time: 1353 Session Stop Time: 1435 Diagnosis: Patient Active Problem List Diagnosis Code Insomnia due to other mental disorder F51.05, F99 Anxiety F41.9 Insomnia, unspecified type G47.00 Primary Problem This Admission: Active Hospital Problems *Insomnia, unspecified type Anxiety DIANE Head Licensed Mental Health Professional (LMHP), [facility] [phone] * Florin Henderson RN - 03/07/2025 7:07 AM CDT Patient is in the recliner resting with eyes closed. She was able to rest uninterrupted and no signs of distress. Respirations have been even and unlabored. * Florin Henderson RN - 03/07/2025 2:09 AM CDT Patient came back to the desk in tears, feeling extremely anxious and said she was scared, I didn't know this is how it was gonna be. She said. She received PRN ativan 0.5 mg. She was also told that the unit is safe and staff is here at all times with patients. She also knows to reach out to talkto staff at anytime. Patient expressed appreciation for care given to her. * Florin Henderson RN - 03/07/2025 1:29 AM CDT 19 year old female with history of anxiety & insomnia who came in with her guardian. She was received from ED due to paranoia and anxiety. 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 Patient states that On Thursday I thought my boyfriend was going to propose to me and my friends and I spent time prepping for this but it did not happen. She got supper anxious plus exhaustion and had to be taken to the hospital that day. She also mentioned that she is from [facility] and has a lot of trauma and other stuff going on in her life. Patient denied SI/HI. She was not clear about hallucination but said it could have been because of lack of sleep since she has not slept for some days now. Nursing and risk assessments completed. Assessments reviewed with [facility] and still needs to meet physician. Admission information reviewed with patient. Patient given a tourof EmPATH and instructions on using the facility. Questions regarding EmPATH addressed. Pt safety search completed. - Patient received PRN Trazodone for sleep. documented in this encounter Consult Notes * Ginger Díaz, LPCC, LADC - 03/07/2025 5:55 AM CDTAssociated Order(s): DIAGNOSTIC EVALUATION CENTER (DEC) ASSESSMENT ORDER Diagnostic Evaluation Consultation Crisis Assessment Patient Name: Amanda Monroy Age: [age] year old Legal Sex: female Gender Identity: female Pronouns: she/her Race: White Ethnicity: Not or Language: German Patient was assessed: Virtual: iPad Crisis Assessment Start Date: 03/07/25 Crisis Assessment Start Time: 134 Crisis Assessment Stop Time: 155 Patient location: [facility] Emergency Dept [id number] Referral Data and Chief Complaint Amanda Monroy presents to the ED with family/friends. Patient is presenting to the ED for the following concerns: Paranoia, Worsening psychosocial stress. Factors that make the mental health crisis life threatening or complex are: Pt presents to the ED for mental health evaluation. Pt has presented to 3 different emergency departments over the past week for similar presentations. Pt states that most recently she was assessed on 03/05/25 at [facility] and discharged at 6:00 AM on 03/06/25. Pt presents to [facility] ED on 03/06/25 stating she continues to experience 'severe anxiety and sometimes paranoia.' Pt provides the following as an example of paranoia: she thought someone may have put something in her food or switched her medications and also said she has been receiving weird messages on her phone from friends and from [employer].Pt states that mostly she has sleep difficulties. She reports that at the previous 2 visits it was more short term solution of being told to take melatonin and a therapy referral. Pt states that she is looking for longer term help. Pt states that she is hoping to learn how to better handle stress and anxiety. She feels her mood swings are making it difficult for her to function. Pt states that her brother has schizophrenia and she is wondering if she does too. She states she has seen 'a boat in a tree.' She reports she is aware that is illogical and states that she was sleep deprived at the time. 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 She states that she has been under a lot of stress. Pt reports that today she went to school to meet with the [employer] and district customs director at [employer]. She states that last week on Thursday she was sleep deprived and that her professor said that she something thatshe denies saying. She found out today that the professor won't let her go into clinicals. She is questioning herself if she did make the statement or not. Pt reports she feels her memory is good as she plays tennis and piano and is concerned that she can't remember. Pt states that she is from [facility] and has a history of trauma that she would like to begin processing in therapy. Pt described trauma and that she had to escape the [place] due to the war, but her brother and father are still there. Informed Consent and Assessment Methods Explained the crisis assessment process, including applicable information disclosures and limits toconfidentiality, assessed understanding of the process, and obtained consent to proceed with the assessment. Assessment methods included conducting a formal interview with patient, review of medical records, collaboration with medical staff, and obtaining relevant collateral information from familyand community providers when available: done History of the Crisis Pt states she does not have a history of mental health diagnosis. Pt denies history of IPMH. She isnot currently on medications for mental health. Pt states that she is staying with her host 'mother' whom she refers to as mom. Pt did not describe auditory hallucinations. Pt denied SI/SIB/HI and was oriented x4. Pt was scheduled to see a psychologist. She denies substance use. Brief Psychosocial History Family: Single, Children no Support System: Parent(s), Friend Employment Status: student Source of Income: unable to assess Financial Environmental Concerns: none Current Hobbies: exercise/fitness, family functions, reading Barriers in Personal Life: mental health concerns Significant Clinical History Current Anxiety Symptoms: racing thoughts, excessive worry, anxious Current Depression/Trauma: difficulty concentrating, crying or feels like crying, impaired decisionmaking, sadness Current Somatic Symptoms: anxious, excessive worry Current Psychosis/Thought Disturbance: forgetful, visual hallucinations Current Eating Symptoms: loss of appetite Chemical Use History: Alcohol: Social Benzodiazepines: None Opiates: None Cocaine: None Marijuana: None Other Use: None Past diagnosis: No known past diagnosis Family history: Anxiety Disorder, Schizophrenia Past treatment: Individual therapy, Primary Care Details of most recent treatment: Pt was placed on observation overnight at [facility] on 03/01/25. Pt was given a diagnosis of Anxiety. Pt saw a therapist on 03/02/25 and had a telehealth appointment with her primary care physician. Pt was then seen at [facility] on 03/05/25. Other relevant history: Have there been any medication changes in the past two weeks: patient is not on psychiatric meds Is the patient compliant with medications: Collateral Information Is there collateral information: No (short story writer attempted to contact pts significant other, Ranjan Hicks ([phone]) to obtain collateral information, however, no answer at this time (5:49 AM)) Risk Assessment Independence Suicide Severity Rating Scale Full Clinical Version: Suicidal Ideation Q1 Wish to be (Lifetime): No Q2 Non-Specific Active Suicidal Thoughts (Lifetime): No Q6 Suicide Behavior (Lifetime): no Intensity of Ideation (Lifetime) Deterrents (Lifetime): Does not apply Reasons for Ideation (Lifetime): Does not apply Suicidal Behavior (Lifetime) Actual Attempt (Lifetime): No Has subject engaged in non-suicidal self-injurious behavior? (Lifetime): No Interrupted Attempts (Lifetime): No Aborted or Self-Interrupted Attempt (Lifetime): No Preparatory Acts or Behavior (Lifetime): No Independence Suicide Severity Rating Scale Recent: Suicidal Ideation (Recent) Q1 Wished to be (Past Month): no Q2 Suicidal Thoughts (Past Month): no Level of Risk per Screen: no risks indicated Intensity of Ideation (Recent) Deterrents (Past 1 Month): Does not apply Reasons for Ideation (Past 1 Month): Does not apply Suicidal Behavior (Recent) Actual Attempt (Past 3 Months): No Has subject engaged in non-suicidal self-injurious behavior? (Past 3 Months): No Interrupted Attempts (Past 3 Months): No Aborted or Self-Interrupted Attempt (Past 3 Months): No Preparatory Acts or Behavior (Past 3 Months): No Environmental or Psychosocial Events: geographic isolation from [...] no Previous Attempt to Hurt Others: no Is the patient engaging in sexually inappropriate [...] Memory: Intact Remote Memory: Intact Mood: Anxious, Normal, Sad Orientation to Person: Yes Orientation to Place: Yes Orientation to Time of Day: Yes Orientation to Date: Yes Situation (Do they understand why they are here?): Yes Psychomotor Behavior: Normal Thought Content: Paranoia, Clear Thought Form: Intact Medication Psychotropic medications: Medication Orders - Psychiatric (From admission, onward) Start Dose/Rate Route Frequency Ordered Stop 03/07/25 0151 traZODone (DESYREL) tablet 50 mg 50 mg Oral AT BEDTIME PRN 03/07/25 0152 03/06/252103 hydrOXYzine HCl (ATARAX) tablet 25 mg 25 mg Oral AT BEDTIME PRN 03/06/25210303/06/252102 OLANZapine zydis (zyPREXA) ODT tab 10 mg 10 mg Oral 3 TIMES DAILY PRN 03/06/25210303/06/252102 LORazepam (ATIVAN) tablet 0.5 mg 0.5 mg Oral EVERY 8 HOURS PRN 03/06/252103 Current Care Team Patient Care Team: Crys Quispe as PCP - General (Family Medicine) Diagnosis Patient Active Problem List Diagnosis Code Insomnia due to other mental disorder F51.05, F99 Anxiety F41.9 Primary Problem This Admission Active Hospital Problems Anxiety Clinical Summary and Substantiation of Recommendations Clinical Substantiation: A lower level of care has been unsuccessful in treating and stabilizing patient???s mental health symptoms. [facility] continuedmon[facility], treatment and therapeutic intervention of mental health symptoms[facility] a more restrictive level of care in an inpatient setting. Goals for crisis stabilization: provide safe environment for further assessment and discuss next steps in care Next steps for Care Team: assess symptoms and safety, provide resources and supports, psychiatry consult Treatment Objectives Addressed: rapport building, orienting the patient to therapy, identifying andpracticing coping strategies, processing feelings, assessing safety, identifying additional supports, building skills Therapeutic Interventions: Identified and practiced coping skills., Explored strategies for self-soothing., Engaged in guided discovery, explored patient's perspectives and helped expand them throughsocratic dialogue. Has a specific means been identified for suicidal/homicide actions: No Patient coping skills attempted to reduce the crisis: Pt said she can talk to someone, listen to music, or listen to ocean waves Disposition Recommended referrals: Individual Therapy, Medication Management, Other. please comment (observation at [facility]) Reviewed case and recommendations with attending provider. Attending Name: no provider assigned dueto laborer car barn at [facility] Attending concurs with disposition: Patient and/or validated legal guardian concurs with disposition: yes Final disposition: observation Legal status: Voluntary/Patient has signed consent for treatment Reviewed court records: yes Assessment Details Total duration spent with the patient: 21 min CPT code(s) utilized: 01297 - Psychotherapy (with patient) - 30 (16-37*) min JOHN Khan, MARIA C, Psychotherapist DEC - Triage & Transition Services Callback: [phone] documented in this encounter ED Notes * Fransisco Ríos MD - 03/08/2025 1:19 PM CDT [facility] Unit - Psychiatric Observation Discharge Summary [facility] Emergency Department Discharge Date: 03/08/2025 Amanda Monroy Age: [age] year old Date of : 2005 Brief HPI & Initial ED Course Chief Complaint Patient presents with Paranoid Anxiety HPI Amanda Monroy is a 19 year old female with history notable for insomnia, anxiety, with co-occurring paranoia and a history of trauma. [facility]now approaching [facility] hours in the emergency department. Overnight, the patient is reported to have slept very well. On reassessment, the patient was sitting on the open milieu and reading a book. She was bright on approach and accompanied me to the interview room for meeting. She is happy to report that she slept extremely well last night, citing around 12 hours of sleep. She is noting mild sedation from Zyprexa however tolerable and she is not seeking adjustments in the dosing today. She continues to experience mild to moderate anxiety in the evenings however did improve upon taking Zyprexa last night. Appetite is normal. Energy is fair. Concentration is fair. Her mood is euthymic today. There was no indication of psychosis and she did not express paranoid ideations or delusions. She denied auditory and visual hallucinations. She denied suicidal and homicidal thoughts. She had reports tre erating the medication fairly well and is content with her treatment plan. She interprets readinessto discharge home today. She discussed some consideration to lessen her school courseload to better focus on her physical and mental health. She requested a letter to help excuse her from school during the time that she was in the emergency room. Physical Examination BP: 120/81 Pulse: 101 Temp: 97.9 ??F (36.6 ??C) Resp: 16 Height: 165.1 cm (5' 5) Weight: 68.5 kg (151 lb) SpO2: 97 % Physical Exam General: Appears stated age. Neuro: Alert and fully oriented. Extremities appear to demonstrate normal strength on visual inspection. Integumentary/Skin: no rash visualized, normal color Psychiatric Examination Appearance: awake, alert Attitude: cooperative Eye Contact: fair Mood: better Affect: appropriate and in normal range Speech: clear, coherent Psychomotor Behavior: no evidence of tardive dyskinesia, dystonia, or tics Thought Process: linear Associations: no loose associations Thought Content: no evidence of suicidal ideation or homicidal ideation and no evidence of psychotic thought Insight: fair Judgement: intact Oriented to: time, person, and place Attention Span and Concentration: fair Recent and Remote Memory: fair Language: able to name/identify objects without impairment Fund of Knowledge: intact with awareness of current and past events Results Labs Ordered and Resulted from Time of ED Arrival to Time of ED Departure - No data to display Observation Course The patient was found to have a psychiatric condition that would benefit from an observation stay in the emergency department for further psychiatric stabilization and/or coordination of a safe disposition. The plan upon observation admission included serial assessments of psychiatric condition, pot ential administration of medications if indicated, further disposition pending the patient's psychiatric course during the monitoring period. Serial assessments of the patient's psychiatric condition were performed. Nursing notes were reviewed. During the observation period, the patient did not require medications for agitation, and did not require restraints/seclusion for patient and/or provider safety. After a period of working with the treatment team on the EmPATH unit, the patient's mental state improved to allow a safe transition to outpatient care. After counseling on the diagnosis, work-up, and treatment plan, the patient was discharged. Close follow-up with a psychiatrist and/or therapist was recommended and community psychiatric resources were provided. Patient is to return to the ED if any urgent or potentially life-threatening concerns. Discharge Diagnoses: Final diagnoses: Insomnia, unspecified type Paranoia (H) Anxiety Treatment Plan: - Continue Zyprexa 10 mg nightly for management of her mood symptoms and secondary benefits of addressing insomnia. She had recently experienced episodes of paranoia which may additionally benefit from treatment with Zyprexa. Unless there is any strong indication to continue antipsychotic medications, I anticipate short-term use as she establishes with outpatient providers for diagnostic clarity and longer-term treatment planning. - Referral for outpatient medication management and psychotherapy - Discharge home today At the time of discharge, the patient's acute suicide risk was determined to be low due to the following factors: Reduction in the intensity of mood/anxiety symptoms that preceded the admission, denial of suicidal thoughts, denies feeling helpless or hopeless, not currently under the influence of alcohol or illicit substances, denies experiencing command hallucinations, no immediate access to firearms. The patient's acute risk could be higher if noncompliant with their treatment plan, medications, follow-up appointments or using illicit substances or alcohol. Protective factors include: social supports, stable housing, school I spent more than 30 minutes on discharge day activities. -- Fransisco Ríos MD [facility] EMERGENCY DEPT EmPATH Unit Fransisco Ríos MD 03/08/25 [id number] * Xenia Eisenberg RN - 03/08/2025 10:22 AM CDT Pt states she slept 12 hours with the Zyprexa and feels good, Her anxiety is under control ,no AH or VH. States that she may want a lower dose for HS so she can get up for school. Pleasant and cooperative.denies SI Pt will be discharging around 5 pm when her mom is available. * Fransisco Ríos MD - 03/07/2025 3:25 PM CDT [facility] Unit - Initial Psychiatric Observation Note [facility] Emergency Department Observation Initiation Date: Mar 06, 2025 Amanda Monroy Age: [age] year old Date of : 2005 History Chief Complaint Patient presents with Paranoid Anxiety HPI Amanda Monroy is a 19 year old female with a past history notable for prominent insomnia and anxiety with co-occurring paranoia. She presents to the emergency room for evaluation of heightened anxiety and ongoing insomnia. She reported that a few days ago, after 3 nights of not sleeping well, she was experiencing moderate paranoia. In our emergency room, she was determined to be medically stable and transferred to the EmPATH unit for psychiatric assessment. She is now approaching 20 hours in the emergency department. Overnight, there were no acute issues. On examination today, patient reviews with me that following a recent visit with her outpatient provider, she was prescribed Zyprexa for managing sleep and anxiety. She slept well with the medication at 10 mg nightly however ran intosome difficulty refilling the medication at the pharmacy. She tried to substitute with melatonin however noticed that daytime anxiety began to intensify. As insomnia returned, she began to feel paranoid, leading to her return to the emergency room to seek help. She denied auditory or visual hallucinations. She did not elaborate on details related to paranoid delusions however denied any significant paranoia today. She highly suspects that insomnia correlates with episodes of paranoia. She notesthat her brother has schizophrenia and is being mindful of monitoring for similar symptoms given her recent episodes of paranoia. She did not report a primary mood disorder as being contributory, generally maintaining a euthymic mood, despite various stressors she has encountered recently and noting a history of trauma. She inquired regarding a referral to a therapist that is scheduled in trauma.She is hoping to extend her stay 1 more night to reestablish her response to Zyprexa. Past Medical History No past medical history on file. No past surgical history on file. melatonin 5 MG tablet sodium chloride 0.65 % nasal spray childrens multivitamin (ANIMAL SHAPES) CHEW chewable tablet fish oil-omega-3 fatty acids 500 MG capsule norgestim-eth estrad triphasic (ORTHO TRI-CYCLEN) 0.18/0.215/0.25 MG-35 MCG tablet No Known Allergies Family History No family history on file. Social History Social History Tobacco Use Smoking status: Never Smokeless tobacco: Never Substance Use Topics Alcohol use: Never Drug use: Never Review of Systems A medically appropriate review of systems was performed with pertinent positives and negatives noted in the HPI, and all other systems negative. Physical Examination BP: 125/87 Pulse: 103 Temp: 96.8 ??F (36 ??C) Resp: 18 Height: 165.1 cm (5' 5) Weight: 68.5 kg (151 lb) SpO2: 98 % Physical Exam General: Appears stated age. Neuro: Alert and fully oriented. Extremities appear to demonstrate normal strength on visual inspection. Integumentary/Skin: no rash visualized, normal color Psychiatric Examination Appearance: awake, alert Attitude: cooperative Eye Contact: fair Mood: anxious Affect: appropriate and in normal range Speech: clear, coherent Psychomotor Behavior: no evidence of tardive dyskinesia, dystonia, or tics Thought Process: logical and linear Associations: no loose associations Thought Content: no evidence of suicidal ideation or homicidal ideation and no evidence of psychotic thought Insight: fair Judgement: fair Oriented to: time, person, and place Attention Span and Concentration: fair Recent and Remote Memory: fair Language: able to name/identify objects without impairment Fund of Knowledge: intact with awareness of current and past events ED Course Labs Ordered and Resulted from Time of ED Arrival to Time of ED Departure - No data to display Assessments & Plan (with Medical Decision Making) Patient presenting with prominent insomnia and anxiety with some concern for emerging paranoia. There does appear to be some genetic predisposition for schizophrenia although full diagnostic criteriaare currently lacking. Additionally, she notes a strong correlation to insomnia. Her treatment plan focused on educating the patient on blue symptoms to monitor for while reestablishing Zyprexa to help alleviate current symptom intensity. Nursing notes reviewed noting no acute issues. I have reviewed the assessment completed by the [facility]. During the observation period, the patient did [...] the monitoring period. Preliminary diagnosis: ICD-10-CM 1. Insomnia, unspecified type G47.00 2. Paranoia (H) F22 3. Anxiety F41.9 Treatment Plan: - Reinstate Zyprexa 10 mg nightly for management of mood symptoms and secondary benefits at addressing insomnia. She has also had a few bouts of paranoia recently and may benefit from additional antipsychotic qualities of Zyprexa. Additional diagnostic clarity on an outpatient basis would be recommended to help determine her longer-term medication plan and minimize intermediate manager exposure to Zyprexa if not necessary. We reviewed risks and benefits of this medication including the risk of metabolic side effects. Her initial response to the medication has been positive and she would like to reinstate Zyprexa. - Urine drug screen was noted to be negative a couple of days ago - Referral for outpatient psychiatric medication management and psychotherapy - Enter to observation status and reassess tomorrow -- Fransisco Ríos MD [facility] EMERGENCY DEPT EmPATH Unit Fransisco Ríos MD 03/07/25 1533 * Franchesca Jones RN - 03/07/2025 8:39 AM CDT Pt. Reportedly was able to achieve a restful sleep last. Ate breakfast this AM. Anxious and tearfulas she discusses events the past couple of days. Reports having 3 days of inability to achieve or maintain sleep which lead to issues with paranoia, hypersensitivity and cognitive issues. Missed someassignments at school and reportedly (she does not recall ) made a comment during class that was inappropriate. Fears she will not be allowed to finish schooling and graduate this year. Has already received job offers pending graduation. Prior to insomnia event-was a straight A student. Hoping to get help treating her insomnia and stabilizing her mental health. Denies any SI. * Agatha Prescott RN - 03/06/2025 9:00 PM CDT [facility] ED to EMPATH Checklist: Goal for EMPATH: Paranoia management and Medication management Current Behavior: Calm and Cooperative Safety Concerns: Visual Hallucinations Legal Hold Status: Voluntary Medically Cleared by ED provider: Yes Patient Therapeutically Searched: Not searched - Currently in triage Belongings: Remain with patient Independent Ambulation at Baseline: Yes/No: Yes Participates in Care/Conversation: Yes/No: Yes Patient Informed about EMPATH: Yes/No: Yes DEC: Not ordered [facility]: Yes * Israel, Tramaine Nova MD - 03/06/2025 8:55 PM CDT Emergency Department Note History of Present Illness Chief Complaint Paranoid and Anxiety HPI Amanda Monroy is a 19 year old female presenting with paranoia and anxiety. The patient reportshallucinations secondary to insomnia and paranoia. Amanda is in her last year of school and states that she is under a lot of stress. She denies SI, SH, or HI. She denies alcohol or drug use. No medication use. She was seen at [place] yesterday and was discharged. Amanda's professor states that she said something to make her unsafe to be around children, but Amanda denies remembering making this statement. She states that she has been sleeping poorly and believes that this is contributing to her symptoms. Independent Historian Mother as detailed above. Review of External Notes I reviewed the ED note from [facility] from yesterday. The patient was evaluated for insomnia. I reviewed the ED note from [facility] from 03/01/2025. The patient was evaluated for anxiety and insomnia. Past Medical History Medical History and Problem List Anxiety Insomnia Medications childrens multivitamin (ANIMAL SHAPES) CHEW chewable tablet fish oil-omega-3 fatty acids 500 MG capsule melatonin 5 MG tablet norgestim-eth estrad triphasic (ORTHO TRI-CYCLEN) 0.18/0.215/0.25 MG-35 MCG tablet sodium chloride 0.65 % nasal spray Surgical History No past surgical history on file. Physical Exam Patient Vitals for the past 24 hrs: BP Temp Temp src Pulse Resp SpO2 Weight 03/06/252034 125/87 96.8 ??F (36 ??C) Temporal 103 18 98 % 68.5 kg (151 lb) Physical Exam General: Alert, interactive Head: Scalp is atraumatic Eyes: No scleral icterus ENT: Nose: The external nose is normal Ears: External ears are normal Mouth/Throat: Mucus membranes are moist Neck: Normal range of motion. There is no rigidity. Trachea is in the midline CV: Regular rate and rhythm No murmur Resp: Breath sounds are clear bilaterally Non-labored, no retractions or accessory muscle use MS: Normal strength in all 4 extremities Skin: Warm and dry, No rash or lesions noted. Neuro: Strength 5/5 x4. GCS: 15 Psych: Awake. Alert. Anxious affect. Appropriate interactions. Diagnostics Lab Results Labs Ordered and Resulted from Time of ED Arrival to Time of ED Departure - No data to display Imaging No orders to display Independent Interpretation None ED Course Medications Administered Medications acetaminophen (TYLENOL) tablet 650 mg (has no administration in time range) ibuprofen (ADVIL/MOTRIN) tablet 600 mg (has no administration in time range) LORazepam (ATIVAN) tablet 0.5 mg (has no administration in time range) OLANZapine zydis (zyPREXA) ODT tab 10 mg (has no administration in time range) melatonin tablet 3 mg (has no administration in time range) hydrOXYzine HCl (ATARAX) tablet 25 mg (has no administration in time range) Procedures Procedures Discussion of Management Patient be seen by her mental health professionals in our empath unit ED Course Additional Documentation None Medical Decision Making / Diagnosis CMS Diagnoses: None MIPS None MDM Amanda Monroy is a 19 year old female presenting with paranoia and insomnia. She has had 2 previous emergency department visits earlier this week. Her symptoms continue to cause her some level ofdistress, she is sleeping poorly, she is not currently on any medications. At this point I believe she would benefit from further psychiatric evaluation by her mental health professionals in our empath unit. Patient is comfortable with this plan of action and will be transition to the unit. There is no signs of an acute intoxication, she had an extensive laboratory workup at [facility] yesterday and I do not believe she needs repeat laboratory studies today. [facility] ICD-10-CM 1. Insomnia, unspecified type G47.00 2. Paranoia (H) F22 Scribe Disclosure: I, Juliann Herrera, am serving as a scribe at 9:14 PM on 03/06/2025 to document services personally performed by Tramaine Wood MD based on my observations and the provider's statements to me. Tramaine Wood MD 03/06/25 2342 * Agatha Prescott, MAISHA - 03/06/2025 8:43 PM CDT Pt was referred here to go to [facility], was seen at [facility] and [place]. Pt was at [place] last night and they woke her up at 0100 to discharge her. Pt states she knows she is paranoid and that she is seeing things that aren't there like a boat in a tree. 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 Pt was given zyprexa for sleep and melatonin. Triage Assessment (Adult) Row Name 03/06/252037 Respiratory WDL Respiratory WDL WDL Cardiac WDL Cardiac WDL WDL Cognitive/Neuro/Behavioral WDL Cognitive/Neuro/Behavioral WDL WDL documented in this encounter Miscellaneous Notes * Plan of Care - Juan C Lawrence, [facility] - 03/07/2025 1:55 PM CDT Amanda Monroy March 07, 2025 Plan of Care Hand-off Note Patient Recommended Care Path: observation Clinical Substantiation: A lower level of care has been unsuccessful in treating and stabilizing pt???s mental health symptoms. Pt is recommended for continued observation at [facility] for monitoring, treatment and therapeutic intervention of mental health symptoms. Observation at [facility] could help mitigate the need for a more restrictive level of care in an inpatient setting. Pt and provider are agr eeable to continued observation. LMHP will continue to reassess as needed to determine appropriate care path. When pt is appropriate for discharge aftercare plan should focus on coordination of OP therapy and OP psychiatry referrals. Goals for crisis stabilization: provide safe environment for further assessment and discuss next steps in care Next steps for Care Team: assess symptoms and safety, provide resources and supports, psychiatry consult Treatment Objectives Addressed: rapport building, orienting the patient to therapy, identifying andpracticing coping strategies, processing feelings, assessing safety, identifying additional supports, building skills Therapeutic Interventions: Identified and practiced coping skills., Explored strategies for self-soothing., Engaged in guided discovery, explored patient's perspectives and helped expand them throughsocratic dialogue. Has a specific means been identified for suicidal/homicide actions: No The follow up action still needed prior to discharge: after care planning Patient coping skills attempted to reduce the crisis: Pt said she can talk to someone, listen to music, or listen to ocean waves Collateral contact information: Ranjan Hicks, significant other, Legal Status: Voluntary/Patient has signed consent for treatment Reviewed court records: yes Psychiatry Consult: completed DIANE Head * Plan of Care - Ginger Díaz, [facility], [facility] - 03/07/2025 5:57 AM CDT Amanda Monroy March 07, 2025 Plan of Care Hand-off Note Patient Recommended Care Path: observation Clinical Substantiation: A lower level of care has been unsuccessful in treating and stabilizing patient???s mental health symptoms. Patient will remain on EmPATH unit under observation for continuedmonitoring, treatment and therapeutic intervention of mental health symptoms. Observation at [facility] help mitigate the need for a more restrictive level of care in an inpatient setting. Goals for crisis stabilization: provide safe environment for further assessment and discuss next steps in care Next steps for Care Team: assess symptoms and safety, provide resources and supports, psychiatry consult Treatment Objectives Addressed: rapport building, orienting the patient to therapy, identifying andpracticing coping strategies, processing feelings, assessing safety, identifying additional supports, building skills Therapeutic Interventions: Identified and practiced coping skills., Explored strategies for self-soothing., Engaged in guided discovery, explored patient's perspectives and helped expand them throughsocratic dialogue. Has a specific means been identified for suicidal.homicide actions: No If yes, describe: Explain action steps toward mitigation: Document completion of mitigation action: The follow up action still needed prior to discharge: Patient coping skills attempted to reduce the crisis: Pt said she can talk to someone, listen to music, or listen to ocean waves Collateral contact information: Ranjan Hicks, significant other, Legal Status: Voluntary/Patient has signed consent for treatment Reviewed court records: yes Psychiatry Consult: pt will meet with psychiatry provider while on EmPATH JOHN Khan, MARIA C * Psych - Alyson Arellano MD - 03/07/2025 1:52 AM CDT Motorboat Mechanic Inboard/Outboard received call from unit nurse regarding patient request for prn trazodone for sleep and prn nasal spray for congestion. Orders placed. documented in this encounter Plan of Treatment Not on file documented as of this encounter Visit Diagnoses Diagnosis Anxiety- Primary Anxiety state, unspecified Insomnia, unspecified type Paranoia (H) Delusional disorder Anxiety Anxiety state, unspecified Insomnia, unspecified type documented in this encounter Admitting Diagnoses Diagnosis Insomnia, unspecified type documented in this encounter Administered Medications Inactive Administered Medications - up to 3 most recent administrations Medication Order MAR Action Action Date Dose Rate Site acetaminophen (TYLENOL) tablet 650 mg 650 mg, Oral, EVERY 4 HOURS PRN, mild pain, fever, Starting on Thu03/06/25 at 2103, Use first for mild pain if ordered with ibuprofen. Recommend alternating ibuprofen (if ordered) with acetaminophen. Maximum acetaminophen dose from all sources = 75 mg/kg/day not to exceed 4 grams/day. hydrOXYzine HCl (ATARAX) tablet 25 mg 25 mg, Oral, AT BEDTIME PRN, other, sleep, melatonin augmentation or failure., Starting on Thu03/06/25 at 2104, Offer if unable to sleep 30 minutes after melatonin administration. ibuprofen (ADVIL/MOTRIN) tablet 600 mg 600 mg, Oral, EVERY 6 HOURS PRN, mild pain, fever, Starting on Thu03/06/25 at 2103, Use second for mild pain if ordered with acetaminophen. Recommend alternating acetaminophen (if ordered) with ibuprofen. Give with food. LORazepam (ATIVAN) tablet 0.5 mg 0.5 mg, Oral, EVERY 8 HOURS PRN, anxiety, Starting on Thu03/06/25 at 2103 $Given 03/07/2025 2:05 AM CDT 0.5 mg OLANZapine (zyPREXA) tablet 10 mg 10 mg, Oral, AT BEDTIME, First dose on Thu03/07/25 at 2200, Combined IM and PO doses may significantly increase the risk of orthostatic hypotension at 30 mg per day or higher. $Given 03/07/2025 10:13 PM CDT 10 mg sodium chloride (OCEAN) 0.65 % nasal spray 1 spray 1 spray, Both Nostrils, DAILY PRN, congestion, Starting on Thu03/07/25 at 0152 traZODone (DESYREL) tablet 100 mg 100 mg, Oral, AT BEDTIME PRN, sleep, Starting on Thu03/07/25 at 1524 traZODone (DESYREL) tablet 50 mg 50 mg, Oral, AT BEDTIME PRN, sleep, Starting on Thu03/07/25 at 0151 $Given 03/07/2025 2:00 AM CDT 50 mg documented in this encounter Active and Recently Administered Medications Times are shown in CDT. Scheduled Medication Order 03/06/2025 03/07/2025 03/08/2025 OLANZapine (zyPREXA) tablet 10 mg 10 mg, Oral, AT BEDTIME, First dose on Thu03/07/25 at 2200, Combined IM and PO doses may significantly increase the risk of orthostatic hypotension at 30 mg per day or higher. 2213 ($Given - Provider: Rudy Cid RN) PRN Medication Order 03/06/2025 03/07/2025 03/08/2025 acetaminophen (TYLENOL) tablet 650 mg 650 mg, Oral, EVERY 4 HOURS PRN, mild pain, fever, Starting on Thu03/06/25 at 2103, Use first for mild pain if ordered with ibuprofen. Recommend alternating ibuprofen (if ordered) with acetaminophen. Maximum acetaminophen dose from all sources = 75 mg/kg/day not to exceed 4 grams/day. hydrOXYzine HCl (ATARAX) tablet 25 mg 25 mg, Oral, AT BEDTIME PRN, other, sleep, melatonin augmentation or failure., Starting on Thu03/06/25 at 2104, Offer if unable to sleep 30 minutes after melatonin administration. ibuprofen (ADVIL/MOTRIN) tablet 600 mg 600 mg, Oral, EVERY 6 HOURS PRN, mild pain, fever, Starting on Thu03/06/25 at 2103, Use second for mild pain if ordered with acetaminophen. Recommend alternating acetaminophen (if ordered) with ibuprofen. Give with food. LORazepam (ATIVAN) tablet 0.5 mg (CANCELED) 0.5 mg, Oral, EVERY 8 HOURS PRN, anxiety, Starting on Thu03/06/25 at 2103 0205 ($Given - Provider: Rosa Henderson RN) sodium chloride (OCEAN) 0.65 % nasal spray 1 spray 1 spray, Both Nostrils, DAILY PRN, congestion, Starting on Thu03/07/25 at 0152 traZODone (DESYREL) tablet 100 mg 100 mg, Oral, AT BEDTIME PRN, sleep, Starting on Thu03/07/25 at 1524 traZODone (DESYREL) tablet 50 mg (CANCELED) 50 mg, Oral, AT BEDTIME PRN, sleep, Starting on Thu03/07/25 at 0151 0200 ($Given - Provider: Rosa Henderson RN) documented in this encounter Care Teams Gear Machinist Relationship Specialty Start Date End Date Crys Quispe [address] [place] [address] PCP - General Family Medicine 03/05/25 documented as of this encounter
[2025-04-05] VITALS (34 sets, daily range): BP systolic 100–138; BP diastolic 62–92; PULSE 86–145; RESP 12–34; TEMP 36.9; O2SAT 96–100; BMI 22.3
--- OUTSIDE RECORDS SUMMARY | 2025-04-05 08:59 | XMS_ITS | Encounter Summary ---
Author Organization [place] Address [address] [place] [address]. [place] [address] Care Team Providers Care Take Out Waiter/Waitress Name Role Phone Anthonybj Crys Primary Care Provider [phone] Reason for Visit * Reason Onset Date Comments Clinic Care Coordination - Follow-up 03/09/2025 Encounter Details Date Type Department Care Team (Late st Contact Info) Description 03/09/2025 Telephone [facility] Services - Behavioral Service Line [address] [place] [id number] [facility] Care Coordination - Follow-up Social History Tobacco Use Types Packs/Day Years [...] on file documented as of this encounter Miscellaneous Notes * Telephone Encounter - [facility] - 03/09/2025 8:56 AM CDTSummary: follow up Manager Equipment spoke with pt in regards to offering scheduling assistance but explained to pt that there isn't an insurance on file and would be sent resources in regards to that. No further follow up needed documented in this encounter Plan of Treatment Not on file documented as of this encounter Visit Diagnoses Not on filedocumented in this encounter Care Teams Take Out Waiter/Waitress Relationship Specialty Start Date End Date Crys Quispe [address] [place], [place] [id number] PCP - General Family Medicine 03/05/25 documented as of this encounter
--- OUTSIDE RECORDS SUMMARY | 2025-04-05 08:59 | XMS_ITS | Clinical Summary ---
Author Organization [place] Address [address] [place] [address]. [place] [address] Care Team Providers Care Manager Treasury Name Role Phone Crys Quispe Primary Care Provider [phone] Allergies No known active allergies Medications norgestim-eth estrad triphasic (ORTHO TRI-CYCLEN) 0.18/0.215/0.25 MG-35 MCG tablet Take 1 tablet by mouth daily. Active childrens multivitamin (ANIMAL SHAPES) CHEW chewable tablet Take 1 tablet by mouth daily. Active fish oil-omega-3 fatty acids 500 MG capsule Take 1 capsule by mouth daily. Active sodium chloride 0.65 % nasal spray [place] 1 spray into both nostrils daily as needed for congestion. Active melatonin 5 MG tablet Take 5 mg by mouth nightly as needed for sleep. Active OLANZapine (ZYPREXA) 10 MG tablet Take 1 tablet (10 mg) by mouth at bedtime. 30 tablet Active Active Problems Problem Noted Date Diagnosed Date Insomnia, unspecified type 03/07/2025 Insomnia due to other mental disorder 03/05/2025 Anxiety 03/05/2025 Encounters Date Type Department Care Team Description 03/09/[address] [facility] Services - Behavioral Service Line [address] [place] [address] [facility] Care Coordination - Follow-up 03/06/2025 8:33 PM CDT - 03/08/2025 6:00 PM CDT Hospital Encounter [facility] Emergency Dept [address] [place] [address] Israel, MD Servando Mora John A, MD Andish, Kevan K, MD Insomnia, unspecified type (Primary Dx); Paranoia (H); Anxiety Discharge Disposition: Home or Self Care 03/06/2025 Travel 03/05/2025 5:25 PM CDT - 03/06/2025 6:27 AM CDT Emergency [facility] Emergency Department [address] [place] [address] Destini Knight DO Insomnia due to other mental disorder (Primary Dx) Discharge Disposition: Home or Self Care 03/05/2025 Travel from Last 3 Months Social History Tobacco Use Types Packs/Day Years [...] on file Sexual Orientation Not on file Last Filed Vital Signs Vital Sign Reading [...] Mass Index 25.13 03/06/2025 8:35 PM CDT Plan of Treatment Health Maintenance Due Date Last Done Comments ADVANCE CARE PLANNING 2003 ANNUAL REVIEW OF HM ORDERS 2003 CHLAMYDIA SCREENING 2003 HIV SCREENING 2018 MENINGITIS B VACCINE (1 of 2 - Standard) 2019 HEPATITIS C SCREENING 2021 DTAP/TDAP/TD VACCINE (2 - Td or Tdap) 05/08/2022 04/10/2022 PHQ-2 (once per calendar year) 2024 PAP 2024 COVID-19 VACCINE (2 - 2024-2 6 season) 2025 12/19/2022 INFLUENZA VACCINE (#1) 2025 02/25/2024 YEARLY PREVENTIVE VISIT 12/16/2025 12/17/19 25, 10/29/2023 ZOSTER VACCINE (1 of 2) 2053 HEPATITIS B VACCINE Completed 01/09/2004, 2003, 2003 HPV VACCINE Completed 12/16/2024, 10/29/2023, 12/19/2022 MENINGITIS VACCINE Aged Out No longer eligible based on patient's age to complete this topic PNEUMOCOCCAL VACCINE: PEDIATRICS (0 to 5 YEARS) AND AT-RISK PATIENTS (6 to 49 YEARS) Aged Out No longer eligible b ased on patient's age to complete this topic Procedures Procedure Name Priority Date/Time Associated Diagnosis Comments AMMONIA STAT 03/05/2025 9:45 PM CDT CBC WITH PLATELETS AND DIFFERENTIAL (LIMITED OCCURRENCES) STAT 03/05/2025 8:36 PM CDT EXTRA PURPLE TOP TUBE STAT 03/05/2025 8:36 PM CDT EXTRA TUBE STAT 03/05/2025 8:36 PM CDT ETHANOL LEVEL BLOOD STAT 03/05/2025 8 :36 PM CDT CBC WITH PLATELETS AND DIFFERENTIAL STAT 03/05/2025 8:36 PM CDT HCG QUANTITATIVE STAT 03/05/2025 8:36 PM CDT TSH WITH FREE T4 REFLEX STAT 03/05/2025 8:36 PM CDT MAGNESIUM (LIMITED OCCURRENCES) STAT 03/05/2025 8:36 PM CDT COMPREHENSIVE METABOLIC PANEL (LIMITED OCCURRENCES) STAT 03/05/2025 8:36 PM CDT URINE DRUG SCREEN STAT 03/05/2025 6:2 7 PM CDT URINE DRUG SCREEN PANEL STAT 03/05/2025 6:27 PM CDT from Last 3 Months Results * Ammonia (03/05/2025 9:45 PM CDT) Ammonia 24 11 - 51 umol/L 03/05/2025 10:10 PM CDT UR LABORATORY Blood BLOOD SPECIMEN / Unknown Venipuncture / Unknown 03/05/2025 9:45 PM CDT 03/05/2025 9:48 PM CDT Destini Knight DO LAB - BLOOD ORDERABLES Final Res ult UR LABORATORY [facility] [address] [place] [address], [address] * Extra Purple Top Tube (03/05/2025 8:36 PM CDT) Hold Specimen JIC 03/05/2025 10:02 PM CDT UR LABORATORY Blood BLOOD SPECIMEN / Unknown Venipuncture / Unknown 03/05/2025 8:36 PM CDT 03/05/2025 8:47 PM CDT Destini Knight DO LAB - BLOOD ORDERABLES Final Res ult UR LABORATORY [facility] [address] [place] [address], [address] * CBC with platelets and differential (03/05/2025 8:36 PM CDT) WBC Count 9.57 4.00 - 11.00 10e3/uL [...] BLOOD ORDERABLES Final Res ult UR LABORATORY [facility] [address] [facility], [address] [place] [address], [facility] * (ABNORMAL) Comprehensive Metabolic Panel (Limited Occurrences) [...] ORDERABLES Final Res ult Performing Organization Address City/[facility]/ZIP Co de Phone Number UR LABORATORY [facility] [address] [place] [address], [address] * Magnesium (Limited Occurrences) (03/05/2025 8:36 PM CDT) Magnesium 2.2 1.7 - 2.3 mg/dL 03/05/2025 9:07 PM CDT UR LABORATORY Blood BLOOD SPECIMEN / Unknown Venipuncture / Unknown 03/05/2025 8:36 PM CDT 03/05/2025 8:39 PM CDT Destini Knight DO LAB - BLOOD ORDERABLES Final Res ult UR LABORATORY [facility] [address] [place] [address], [address] * TSH with free T4 reflex (03/05/2025 8:36 PM CDT) TSH 2.43 0.30 - 4.20 uIU/mL 03/05/2025 9:15 PM CDT UR LABORATORY Blood BLOOD SPECIMEN / Unknown Venipuncture / Unknown 03/05/2025 8:36 PM CDT 03/05/2025 8:39 PM CDT Destini Knight DO LAB - BLOOD ORDERABLES Final Res ult UR LABORATORY [facility] [address] [facility], [address] * HCG quantitative (03/05/2025 8:36 PM CDT) [facility] hCG Quantitative <1 <5 mIU/mL 03/05/20 9:15 PM CDT UR LABORATORY Comment: Adult: 0-5 mIU/mL for healthy non- person Neonates: Should be within normal ranges by 2 days after Blood BLOOD SPECIMEN / Unknown Venipuncture / Unknown 03/05/2025 8:36 PM CDT 03/05/2025 8:39 PM CDT Destini Knight DO LAB - BLOOD ORDERABLES Final Res ult Performing Organization Address City/[facility]/ZIP Co de Phone Number UR LABORATORY [facility] Lab [address] [place] [address], [address] * Ethanol Level Blood (03/05/2025 8:36 PM CDT) [facility] Ethanol Level Blood <0.01 <=0.01 g/dL 03/05/2025 9:58 PM CDT UR LABORATORY Blood BLOOD SPECIMEN / Unknown Venipuncture / Unknown 03/05/2025 8:36 PM CDT 03/05/2025 8:39 PM CDT Destini Knight DO LAB - BLOOD ORDERABLES Final Res ult UR LABORATORY [facility], [address] * Urine Drug Screen Panel (03/05/2025 6:27 PM CDT) Amphetamines Urine Screen Negative Screen Negative 03/05/2025 [...] 6:27 PM CDT 03/05/2025 6:30 PM CDT Fatuma Baxter PA-C LAB - URINE ORDERABLES F inal Result UR LABORATORY [facility] [address] [facility], [address] [place] [address], [facility] from Last 3 Months Care Teams Manager Treasury Relationship Specialty Start Date End Date Crys Quispe [address] [place] [address] PCP - General Family Medicine 03/05/25
--- OUTSIDE RECORDS SUMMARY | 2025-04-05 08:59 | XMS_ITS | Encounter Summary ---
Author Organization [place] Address [address] [place] [id number] Care Team Providers Care Emergency Department Director Name Role Phone Crys Quispe Primary Care Provider [phone] Encounter Details Date Type Department Care Team (Latest Contact Info) Description 03/06/2025 Travel Social History Tobacco Use Types Packs/Day Years [...] on file documented as of this encounter Plan of Treatment Not on file documented as of this encounter Visit Diagnoses Not on filedocumented in this encounter Care Teams Emergency Department Director Relationship Specialty Start Date End Date Crys Quispe [address] [place] [address] PCP - General Family Medicine 03/05/25 documented as of this encounter
--- OUTSIDE RECORDS SUMMARY | 2025-04-05 09:00 | XMS_ITS | Encounter Summary ---
Author Organization [facility] Address [address] [place] [id number] Care Team Providers Care Washtub Worker Name Role Phone Crys Quispe Primary Care Provider [phone] Encounter Details Date Type Department Care Team (Latest Contact Info) Description 03/05/2025 Travel Social History Tobacco Use Types Packs/Day [...] on file documented as of this encounter Functional Status * Calculated C-SSRS Risk Score (Lifetime/Recent) Answer Date of Assessment Author No Risk Indicated 03/05/2025 8:14 PM CDT Adriana Burris * Question Answer Date of Assessment Author Description of Most Severe Ideation (Past 1 Month) none reported 03/05/2025 8:14 PM CDT Adriana Ames Deterrents (Past 1 Month) 0 03/05/2025 8:14 PM MARGRETT Adriana Stein Reasons for Ideation (Past 1 Month) 0 03/05/2025 8:14 PM MARGRETT Adriana Stein * Question Answer Date of Assessment Author Actual Attempt (Past 3 Months) No 03/05/2025 8:14 PM MARGRETT Ash Stein Total Number of Actual Attempts (Past 3 Months) 0 03/05/2025 8:14 PM CDT Adriana Sadler Has subject engaged in non-suicidal self-injurious behavior? (Past 3 Months) No 03/05/2025 8:14 PM CDT Adriana Clemens Interrupted Attempts (Past 3 Months) No 03/05/2025 8:14 PM MARGRETT Ash Stein Total Number of Interrupted Attempts (Past 3 Months) 0 03/05/2025 8:14 PM CDT Adriana Sadler Aborted or Self-Interrupted Attempt (Past 3 Months) No 03/05/2025 8:14 PM CDT Adriana Ames Total Number of Aborted or Self-Interrupted Attempts (Past 3 Months) 0 03/05/2025 8:14 PM MARGRETT Ash Stein Preparatory Acts or Behavior (Past 3 Months) No 03/05/2025 8:14 PM MARGRETT Ash Stein Total Number of Preparatory Acts (Past 3 Months) 0 03/05/2025 8:14 PM Adriana Ashley * Question Answer Date of Assessment Author Actual Attempt (Lifetime) No 03/05/2025 8:13 PM Adriana Ashley Has subject engaged in non-suicidal self-injurious behavior? (Lifetime) No 03/05/2025 8:13 PM Adriana Ashley Interrupted Attempts (Lifetime) No 03/05/2025 8:13 PM MARGRETT Ash Stein Aborted or Self-Interrupted Attempt (Lifetime) No 03/05/2025 8:13 PM Ash Ashley Preparatory Acts or Behavior (Lifetime) No 03/05/2025 8:13 PM Ash Ashley * Question Answer Date of Assessment Author Reasons for Ideation (Lifetime) 0 03/05/2025 8:13 PM Ash Ashley documented as of this encounter Plan of Treatment Not on file documented as of this encounter Visit Diagnoses Not on filedocumented in this encounter Care Teams Washtub Worker Relationship Specialty Start Date End Date Crys Quispe [address] [place] [address] PCP - General Family Medicine 03/05/25 documented as of this encounter
--- OUTSIDE RECORDS SUMMARY | 2025-04-05 09:00 | XMS_ITS | Clinical Summary ---
Author Organization [facility] Address [address] [place] [id number] Care Team Providers Care Stockroom Coordinator Name Role Phone Crys Quispe MD Primary Care Provide r Allergies No known active allergies Medications albuterol HFA 90 mcg/actuation inhalerIndications :Mild intermittent asthma without complication (HC) Inhale 1-2 Puffs by mouth every 4 hours if needed for Shortness Of Breath or Wheezing. 1 Each 3 12/17/19 25 Active clindamycin 1 % gelIndications:Acn e, unspecified acne type Apply topically to affected area(s) two times daily. 60 g 5 12/17/19 25 Active Fish Oil-[place]-3 Fatty Acids 300-500 mg cap Take 1 Capsule by mouth once daily. Active multivitamin pediatric chewable tablet Chew 1 Tablet by mouth once daily. Active sodium chloride 0.65 % drop Inhale 1 [place] into affected nostril(s). Active desogestrel-ethiny l estradiol 0.15-30 mg-mcg (ORTHO-CEPT; DESOGEN) tabletIndications: Encounter for other general counseling or advice on contraception Take 1 Tablet by mouth once daily. 84 Tablet 3 03/09/20 25 Active OLANzapine (ZYPREXA (FILM COATED TABLET)) 10 mg tabletIndications: Psychosis, unspecified psychosis type (HC) Take 1 Tablet (10 mg) by mouth at bedtime. 30 Tablet 03/21/20 25 Active desogestrel-ethiny l estradiol 0.15-30 mg-mcg (ORTHO-CEPT; DESOGEN) tabletIndications: Encounter for other general counseling or advice on contraception Take 1 Tablet by mouth once daily. 84 Tablet 3 12/18/19 24 025 Discontin ued(*Simi ent states no longer taking) norgestimate-ethin yl estradioL 0.18/0.215/0.25-25 mg-mcg tabletIndications: Encounter for other general counseling or advice on contraception Take 1 Tablet by mouth once daily. 84 Tablet 3 12/17/19 25 025 Discontin ued(*Simi ent states no longer taking) norgestimate-ethin yl estradioL (Ortho Tri-Cyclen (28)) 0.18/0.215/0.25 mg-0.035mg (28) tabletIndications: Counseling for control, oral contraceptives Take 1 Tablet by mouth once daily. 84 Tablet 3 02/03/20 25 025 Discontin ued(*Simi ent states no longer taking) OLANzapine (ZyPREXA) 5 mg tabletIndications: Paranoid behavior (HC),Insomnia, idiopathic Take 1 Tablet (5 mg) by mouth at bedtime. May repeat x 1. 2 Tablet 03/04/20 25 025 Discontin ued(*Medi cation adjustmen t) melatonin 5 mg tablet Take 5 mg by mouth. Discontin ued(*Med complete/ Regimen complete/ Level of care change) OLANzapine (ZYPREXA (FILM COATED TABLET)) 10 mg tablet Take 10 mg by mouth at bedtime. 03/08/20 25 025 Discontin ued(Reord er (E-cancel not sent)) Active Problems Problem Noted Date Diagnosed Date PTSD (post-traumatic stress disorder) 03/24/2025 Psychosis 03/24/2025 Acne 12/17/2024 Encounters Date Type Department Care Team Description 03/23/2025 11:15 AM CDT Office Visit [facility] [address] [place] [address] Koki Lockhart GASTROENTEROLOGY PHYSICIAN [facility] Visit 03/23/2025 10:45 AM CDT Office Visit [facility] [address] [facility] [place] [address] Crys Quispe MD Follow Up (Discuss medications) 03/23/2025 Travel 03/21/2025 10:45 AM CDT Office Visit [facility] [address] [place] [address] Toshia Felder NP Mental Health Intake (Was in the hospital 3x, sleep deprived) 03/21/2025 Telephone [facility] [address] [place] [address] Toshia Felder NP [facility] ([facility] counseling Services) 03/21/2025 Telephone [facility] [address] [place] [address] Toshia Felder NP 03/20/2025 Travel 03/13/2025 Telephone [facility] [address] [place] [address] Toshia Felder NP Appointment 03/09/2025 3:30 PM CDT Office Visit [facility] [address] [place] [address] Crys Quispe MD [facility] F/U ([facility] Emergency Dept 03/06 - 03/08) 03/09/2025 Travel 03/06/2025 9:45 AM CDT Telemedicine [facility] [address] [facility] [place] [address] Arianna Gentile, PhD, Mental Health Intake 03/06/2025 Travel 03/05/2025 Telephone [facility] [address] [place] [address] Crys Quispe MD Follow Up 03/04/2025 Telephone [facility] [address] [place] [address] Crys Quispe MD Follow Up 03/03/2025 8:00 AM CDT Office Visit [facility] [address] [place] [address] Iris Moser, [facility] Visit 03/03/2025 Telephone [facility] [address] [place] [address] Arianna Gentile, PhD, LP FYI (SHARING INFORMATION ) 03/03/2025 Telephone [facility] [address] [place] [address] Iris Moser, GASTROENTEROLOGY PHYSICIAN Referral 03/03/2025 Travel 03/02/2025 Telephone [facility] [address] [place] [address] Crys Quispe MD Anxiety; ER Follow up 03/01/2025 7:53 PM CDT - 03/02/2025 11:35 AM CDT Emergency [facility] [address] [place] [address] Christian Ortiz MD Bowler, MD George Monte, Romario Cortes MD Anxiety (Primary Dx); Insomnia, unspecified type Discharge Disposition: Home Self Care 03/01/2025 Travel from Last 3 Months Immunizations Immunization Administration Dates Next Due COVID-19 vaccine ([employer] 30mcg/0.3mL) 12YO+ BIVALENT PF, MDV 12/19/2022 HPV 9 (Gardasil 9) 12/16/2024,10/29/2023, 023 12/19/2022 Hepatitis B (Peds) 01/09/2004,2003, 004 INFLUENZA, IIV3 PF (AGE >= 6 MO) 02/14/2025 Influenza, CCIIV3 (Age >=6 MO) (Egg Free) 2023 MMR 04/10/2022,08/08/2004 Tdap 04/10/2022 Family History Medical History Relation Name Comments Anxiety disorder Brother Depression Brother Good Health Father Good Health Mother Relation Name Status Comments Brother Alive Father Alive Mother Alive Social History Tobacco Use Types Packs/Day Years Used Date Smoking Tobacco: Never Smokeless Tobacco: Never Alcohol Use Standard Drinks/Week Comments Yes 0 (1 standard drink = 0.6 oz pur e alcohol) socially/rare PHQ-2 Answer Date Recorded PHQ-2 TOTAL SCORE 1 03/20/2025 Social Connections Answer Date Recorded Do you often feel lonely or isolated from those around you? 0 12/15/2024 Alcohol Use Answer Date Recorded How often do you have a drink containing alcohol ? 1 03/09/2025 How many drinks containing a lcohol do you have on a typical day when you are drinking? 0 03/09/2025 How often do you have five or more drinks on one occasion? 0 03/09/2025 Financial Resource Strain Answer Date R ecorded Difficulty of Paying Living Expenses 3 12/15/2024 Difficulty of Paying Living Expenses Not on file 12/15/2024 Food Insecurity Answer Date Recorded Do you worry your food will run out before you are able to buy more? 1 12/15/2024 Transportation Needs Answer Date Record ed Does lack of transportation keep you from medica l appointments? 1 12/15/2024 Does lack of transportation keep you from work, meetings or getting things that you need? 1 12/15/2024 Housing Stability Answer Date Recorded What is your housing situation today? 1 12/15/2024 Interpersonal Safety Answer Date Record ed Are you being hit, kicked, p ushed or yelled at (see row info)? No 03/01/2025 Interpersonal Safety Abuse 12 - 18 Not on file 03/01/2025 Interpersonal Safety Ambulatory Vulnerability No t on file 03/01/2025 Utilities Answer Date Recorded Do you have trouble paying f or utilities (for example, heat, electricity, water, phone)? 1 12/15/2024 Comments No Sex and Gender Information Value Date Recorded Sex Assigned at Not on file Legal Sex Female 5:27 PM CDT Gender Identity Not on file Sexual Orientation Not on file Obstetrics History Last Filed Vital Signs Vital Sign Reading Time Taken Comments Blood Pressure 100/71 03/23/2025 10:41 AM CDT Pulse 61 03/23/2025 10:41 AM CDT Temperature 37.4 C (99.3 F) 03/01/2025 7:24 PM CDT Respiratory Rate 20 03/01/2025 7:24 PM CDT Oxygen Saturation 98% 03/23/2025 10:41 AM CDT Inhaled Oxygen Concentration - - Weight 70.3 kg (155 lb) 03/23/2025 10:41 AM CDT Height 163.8 cm (5' 4.49) 03/21/2025 10:48 AM C DT Body Mass Index 26.2 03/21/2025 10:48 AM CDT Plan of Treatment Upcoming Encounters Date Type Department Care Team (Late st Contact Info) Description 04/06/2025 10:15 AM CDT Telemedicine [facility] [address] [place] [address] Toshia Felder NP [address] [place] [address] 04/27/2025 9:00 AM AUTOMATIC BLOCKER Office Visit [facility] [address] [place] [address] Crys Quispe MD [address] [place] [address] Health Maintenance Due Date Last Done Comments HIV for age 15-65 2018 Chlamydia for age 16-24 2019 Hepatitis C screening for age 18-79 2021 Pap test for age 21-65 2024 BMI (ht and wt on same day) for age 18+ 03/21/2026 03/21/2025, 12/16/2024, 10/29/2023, Additional history exists Depression screening for age 12+ 03/23/2026 03/23/2025, 03/21/2025, 03/20/2025, Additional history exists Tetanus booster 04/10/2032 04/10/2022 RSV vaccine for adults or (1 - 1-dose 75+ series) 2078 Hepatitis B series for 19+ Completed 01/08, 2003, 2003 COVID-19 vaccine series Completed 02/25/2024, 12/19 HPV series for age 9-45 Completed 12/17/19, 10/29/2023, 12/19/2022 Influenza Vaccine Completed 02/14/2025, 02/25/2024 Meningococcal series for age 11-21 Aged Out No longer eligible based on patient's age to complete this topic Pneumococcal series for age 6-49 Aged Out No longer eligible based on patient's age to complete this topic Procedures Procedure Name Priority Date/Time Associated Diagnosis Comments EKG 12 LEAD STAT 03/01/2025 11:12 PM CDT URINE Today 03/01/2025 10:14 PM CDT DRUG SCREEN RAPID URINE INHOUSE STAT 03/01/2025 10:14 PM CDT from Last 3 Months Results * EKG 12 LEAD (03/01/2025 11:12 PM CDT) Pathologist [facility] Interpretation Normal sinus rhythm with sinus arrhythmia Possible Left atrial enlargement Borderline ECG No Stemi No previous ECGs available BEYOND NOW Ventricular Rate 68 BPM BEYOND NOW Atrial Rate 68 BPM BEYOND NOW P-R Interval 124 ms BEYOND NOW QRS Duration 80 ms BEYOND NOW QT 408 ms BEYOND NOW QTc 433 ms BEYOND NOW P [place] 56 degrees BEYOND NOW R [place] 34 degrees BEYOND NOW T [place] 35 degrees BEYOND NOW 03/01/2025 11:1 2 PM CDT 03/02/2025 2:57 AM CDT us Christian Ortiz MD EKG ORD Final Result Performing Organization Address City/State/[facility] Co de Phone Number BEYOND NOW [place], [place] * DRUG ABUSE SCREEN RAPID URINE (03/01/2025 10:14 PM CDT) Pathologist [facility] THC METABOLITES,ALEXY L Not Detected Not Detected 03/01/2025 10:33 PM CDT [facility] PCP,QUAL Not Detected Not Detected 03/01/2025 10:33 PM CDT [facility] COCAINE,QUAL Not Detected Not Detected 03/01/2025 10:33 PM CDT [facility] METHAMPHETAMINE , QUALITATIVE Not Detected Not Detected 03/01/2025 10:33 PM CDT [facility] OPIATES,QUAL Not Detected Not Detected 03/01/2025 10:33 PM CDT [facility] AMPHETAMINE, QUALITATIVE Not Detected Not Detected 03/01/2025 10:33 PM CDT [facility] BENZODIAZEPINES ,QUAL Not Detected Not Detected 03/01/2025 10:33 PM T [facility] TRICYCLICS,QUAL Not Detected Not Detected 03/01/2025 10:33 PM CDT [facility] METHADONE, QUALITATIVE Not Detected Not Detected 03/01/2025 10:33 PM CDT [facility] BARBITURATES,QU AL Not Detected Not Detected 03/01/2025 10:33 PM CDT [facility] OXYCODONE, QUALITATIVE Not Detected Not Detected 03/01/2025 10:33 PM CDT [facility] BUPRENORPHINE, QUALITATIVE Not Detected Not Detected 03/01/2025 10:33 PM CDT [facility] Urine URINE SPECIMEN / Unknown Non-Blood / Unknown 03/01/2025 10:14 PM CDT 03/01/2025 10:18 PM CDT Narrative [facility] - 03/01/2025 10:33 PM CDT Please Note: This is a screening test only, all results are unconfirmed and should be used for medical purposes only. Unconfirmed results must not be used for non-medical purposes (e.g., employment testing, legal testing). Suggest analyte specific confirmation for all non-negative results. Specimens will be held for 24 hours if additional testing is needed. The following threshold concentrations are used for this analysis: Drug Screening Threshold Buprenorphine 10 ng/mL PCP 25 ng/mL THC Metabolites 50 ng/mL *Opiates 100 ng/mL Oxycodone 100 ng/mL Cocaine 150 ng/mL Benzodiazepines 150 ng/mL Methadone 200 ng/mL Barbiturates 200 ng/mL Tricyclic Antidepressants 300 ng/mL Amphetamines 500 ng/mL Methamphetamines 500 ng/mL *Includes related compounds: Codeine 50 ng/mL Heroin 100 ng/mL Morphine 100 ng/mL Hydrocodone 400 ng/mL Hydromorphone 800 ng/mL Venlafaxine (Effexor) is a known cross reactant in the PCP assay. If clinically indicated, order PCP confirmation. us Christian Ortiz MD URINE Final Result [facility] [address] [place] [address] * URINE (03/01/2025 10:14 PM CDT) ,URIN E Negative Negative 03/01/2025 10:25 PM CDT [facility] Urine URINE SPECIMEN / Unknown Non-Blood / Unknown 03/01/2025 10:14 PM CDT 03/01/2025 10:18 PM CDT us Christian Ortiz MD URINE Final Result [facility] [address] [place] [address] from Last 3 Months Insurance [employer] GENERIC Care Teams Stockroom Coordinator Relationship Specialty Start Date End Date Crys Quispe MD [address] [place] [address] PCP - General Family Practice 04/10/22
[2025-04-05 09:14] LABS: Lactate* 1.8 mmol/L (0.5-1.9)
[2025-04-05 09:15] LABS: Hematocrit* 41.5 % (33.0-51.0); Hemoglobin* 14.3 gm/dL (12.0-16.0); Immature Granulocytes Abs Auto 0.01 K/uL (0.00-0.30); Immature Granulocytes Pct Auto 0.1 %; Lymphocytes Absolute Auto 2.08 K/uL (0.90-2.90); Mean Corpuscular HGB Conc 35 gm/dL (32-36); Mean Corpuscular Hemoglobin 30 pg (26-34); Mean Corpuscular Volume 86 fL (80-100); RDW Coefficient of Variation % 11.3 % (11.5-15.5); Red Blood Count* 4.81 m/uL (4.00-5.20); White Blood Count* 7.85 K/uL (4.50-11.00)
[2025-04-05 09:17] LABS: Slide Review Reflex No
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
[2025-04-05] MEDS: MIDAZOLAM HCL 1 MG/ML inj 2 MG IVP ×2 (09:27→19:22)
[2025-04-05 09:29] LABS: Appearance Urine Clear (Clear)
[2025-04-05 09:31] LABS: Albumin* 4.6 g/dL (3.3-5.0); Chloride* 103 mmol/L (96-114); Sodium* 135 mmol/L (135-149)
[2025-04-05 09:32] LABS: Potassium* 3.4 mmol/L (3.6-5.1)
[2025-04-05 09:34] LABS: Alanine Aminotransferase* 43 U/L (4-35); Anion Gap 10 mEq/L (7-15); Aspartate Amino Transferase* 33 U/L (12-35); Blood Urea Nitrogen* 9 mg/dL (5-24); Calcium* 9.3 mg/dL (8.4-10.6); Carbon Dioxide* 22 mmol/L (20-32); Creatinine* 0.8 mg/dL (0.5-1.5); Est. Creatinine Clearance* 96.06; Estimated Glomerular Filt Rate 107 ml/min; Glucose* 141 mg/dL (60-115); Total Protein* 7.9 g/dL (6.0-8.3)
[2025-04-05 09:35] LABS: Alkaline Phosphatase* 67 U/L (40-150); Bilirubin Direct* 0.1 mg/dL (0.0-0.5); Bilirubin Total* 0.5 mg/dL (0.1-1.5)
[2025-04-05 09:36] LABS: Cannabinoid Screen Urine Negative (Negative); Methamphetamines Screen Urine Negative (Negative); Tricyclic Antidepressant Urine Negative (Negative)
[2025-04-05 09:42] LABS: Salicylate* < 1.0 mg/dL (1.0-10)
[2025-04-05 09:43] LABS: Acetaminophen* < 10.0 ug/mL (10.0-30.0); Ethanol* < 0.01 % (0.01-0.03)
[2025-04-05] MEDS: POTASSIUM CHLORIDE 10 MEQ/100 ML PIGGYBACK 100 MEQ IVPB ×4 (09:47→13:55)
[2025-04-05 10:21] LABS: SARS PCR* Negative SARS-CoV-2 (Negative)
[2025-04-05 13:32] LABS: Ur HCG Qualitative* Negative (Negative)
== END 2025-04-05 20:47 | disposition short-term general hospital (02) ==
PROVIDERS: Student in an Organized Health Care Education/Training Program; Emergency Provider Family Medicine
DX: T43.592A Poisoning by other antipsychotics and neuroleptics, intentional self-harm, initial encounter (principal)
CPT/HCPCS: 36415; 80048; 80076; 80143; 80179; 80306; 81001; 81025; 82077; 83605; 83735; 84443; 85025; 87635; 93005; 94761; 99285; 99291; J2060; J2250; J3480; J7030

== ENCOUNTER 2025-04-05 20:30 | Outpatient (CLI) | payer OTHER, SELFPAY | END 2025-04-05 20:31 | disposition home or self-care (01) | LOC: AMB 04-07 13:32 | PROVIDERS: Visit Provider Family Medicine | DX: T43.591A Poisoning by other antipsychotics and neuroleptics, accidental (unintentional), initial encounter (principal); R41.82 Altered mental status, unspecified | CPT/HCPCS: A0425; A0427 ==